=== PATIENT | female | born 1950 | race Caucasian/White ===

== ENCOUNTER 2016-10-23 15:25 | Inpatient (IN) ==
[2016-10-23] MEDS ORDERED: ASPIRIN PO STA (16:17)
[2016-10-23] MEDS ORDERED: NS 1,000 ML IV ONE ×2 (17:09→20:57)
[2016-10-23 17:13] LABS: BASO% 0.2 % (0.0-0.8); HEMATOCRIT 41.8 % (37.0-47.0); HEMOGLOBIN 14.5 g/dL (12.0-16.0); IMM GRAN# 0.05 X1000 (0.0-0.04); IMM GRAN% 0.3 % (0.0-0.5); LYMPH# 0.79 X1000 (1.2-3.4); LYMPH% 5.4 % (20.5-51.1); MANUAL DIFF NEEDED? NO; MCH 31.7 PG (27-31); MCHC 34.7 g/dL (33-37); MCV 91.5 FL (81-99); MONO# 0.68 X1000 (0.11-0.59); MONO% 4.7 % (1.7-9.3); MPV 10.8 FL (7.4-10.4); NEUT% 89.4 % (42.2-75.2); PLT 212 X1000 (130-400); RBC 4.57 XMIL (4.2-5.4)
[2016-10-23 17:22] LABS: INR 0.94; PROTIME 9.8 Seconds (9.2-11.7); PTT 21.8 Seconds (22.0-36.0)
--- NOTE | 2016-10-23 17:42 | Diag Imaging Result Doc PS360 ---
EXAM: CHEST-PORTABLE HISTORY: vomiting, h/o DM TECHNIQUE: COMPARISON: 01/21/2016 FINDINGS: The lungs are hyperexpanded. The heart is not enlarged. No consolidation. No pleural effusions identified. Mild scoliosis. IMPRESSION: Negative exam Electronically signed by Jamir Ken 10/23/2016 5:40 PM
[2016-10-23 18:37] LABS: ALBUMIN 4.3 g/dL (3.5-5.0); CALCIUM 9.7 mg/dL (8.8-10.2); POTASSIUM 4.7 mmol/L (3.5-5.1); TOTAL BILIRUBIN 0.72 mg/dL (0.20-1.00); TOTAL PROTEIN 7.9 g/dL (6.3-8.3)
[2016-10-23] MEDS ORDERED: HUMULIN R IV ONE (18:44)
[2016-10-23] MEDS ORDERED: ZOFRAN IV ONE (18:45)
[2016-10-23] MEDS ORDERED: HUMULIN R 100 UNIT in NS 100 ML IV SCH ×2 (18:45→19:05)
--- NOTE | 2016-10-23 18:48 | PROVIDER DOCUMENTATION ---
This chart was entered by Skylar Stapleton Scribe, acting as scribe for Ruy Loya MD. HPI-General Adult - General Source: patient - History of Present Illness -Gen Adult Nature of Presenting Problems: Pt is a 66 year old female who came to the ED with a cc of high blood sugar and N/V. Pt reports the last time she took her insulin was last night, but this morning she started vomiting. Pt reports her blood sugar was high and cannot keep anything down. Pt reports, "This feels like DKA." Location of Pain/Injury: reports: none Pain Radiation: reports: no radiation Quality of Pain: reports: none Severity: reports: mild Onset/Duration: reports: this morning Timing: reports: still present Context/Activities at Onset: reports: none Modifying Factors: improves with: nothing Associated Symptoms: reports: nausea, vomiting Similar Symptoms Previously?: Yes Recently seen or treated by another doctor?: No - Diabetes Related Context Context: reports: high blood sugar, prior DKA hospitalization <Ruy Loya - Last Filed: 10/23/16 18:46> - General Source: patient <Hair RiveraCompa - Last Filed: 10/23/16 19:29> - General Chief Complaint: High Blood Sugar Stated Complaint: VOMITING, HIGH BS Time Seen by Provider: 10/23/16 15:56 Allergies/Adverse Reactions: Patient Allergies Allergy/AdvReac Type Severity Reaction Status Date / Time No Known Allergies Allergy Verified 10/13/15 10:40 Home Medications: Home Medication List Medication Instructions Recorded Confirmed Last Taken Type ATORVAstatin [Lipitor] 20 mg PO DAILY 01/21/16 10/23/16 10/22/16 20:00 History Hydrocodone/Acetaminophen [[place] 1 each PO Q6H PRN PRN #12 tablet 01/21/1610/2302/20/16 19:00 Rx 5-325 Tablet] Metoprolol [Lopressor] 25 mg PO BID 01/21/16 10/23/16 10/22/16 20:00 History Pregabalin [Lyrica] 150 mg PO BID 01/21/16 10/23/16 10/22/16 20:00 History Venlafaxine [Effexor] 75 mg PO DAILY 01/21/16 10/23/16 10/22/16 08:00 History Insulin Aspart [Novolog] 7 unit SQ DIRECTED 02/21/16 10/23/16 10/22/16 20:00 History Insulin Glargine [Lantus] 32 unit .SEE ORDER DIRECTED 02/21/16 10/23/1610/22 07:00 History Metoclopramide HCl 5 mg PO AC PRN 10/23/16 10/23/16 10/23/16 10:00 History Review of Systems - Adult - REVIEW OF SYSTEMS - ADULT Constitutional: denies: chills, fever Eyes: reports: no symptoms reported Ears, Nose, Mouth & Throat: reports: no symptoms reported Cardiovascular: reports: no symptoms reported Respiratory: reports: no symptoms reported Gastrointestinal: reports: diarrhea, nausea, vomiting. denies: constipation, difficulty swallowing, frequent heartburn Genitourinary: reports: no symptoms reported Musculoskeletal: reports: no symptoms reported Integumentary: reports: no symptoms reported Neurological: reports: no symptoms reported Psychiatric: reports: no symptoms reported Endocrine: denies: heat intolerance, increased thirst Hematologic/Lymphatic: reports: no symptoms reported Allergic/Immunologic: reports: no symptoms reported All Other Systems: Reviewed and Negative <Ruy Loya - Last Filed: 10/23/16 18:46> - REVIEW OF SYSTEMS - ADULT Constitutional: denies: chills, fever <Hair Rivera - Last Filed: 10/23/16 19:29> Past History - Adult - PAST MEDICAL HISTORY-ADULT Review of Records: reports: Nursing Assessment Review Major Childhood Illnesses: reports: denies history Cardiovascular: reports: HTN, hyperlipidemia Respiratory: reports: denies history Gastrointestinal: reports: denies history Obstetrical/Gynecological: reports: denies history Genitourinary: reports: denies history Musculoskeletal: reports: denies history Neurological: reports: denies history Psychiatric: reports: depression Endocrine/Immune: reports: Diabetes, thyroid disorder (hyperthyroid) Other Conditions: reports: denies history - PRIOR SURGERIES/PROCEDURES Surgical/Procedure History: reports: hysterectomy, other (right ovary removed) - PRIOR HOSPITALIZATIONS Prior Hospitalizations: reports: for similar symptoms - IMMUNIZATION STATUS Childhood Immunizations: See Nurse Assessment Flu Vaccine: See Nurse Assessment - FAMILY HISTORY Family History: reviewed, not pertinent <Ruy Loya - Last Filed: 10/23/16 18:46> - PAST MEDICAL HISTORY-ADULT Review of Records: reports: Old Records Reviewed, Nursing Assessment Review, Medications Reviewed, Social history reviewed & non-contributory. <Hair Rivera - Last Filed: 10/23/16 19:29> Physical Exam-General - PHYSICAL EXAM-ADULT Initial Vital Signs Reviewed: Yes - CONSTITUTIONAL General Appearance: alert, mild distress - EYES Eyes: PERRL/EOMI, pink conjunctivae - HEAD, EARS, NOSE, MOUTH & THROAT HENMT: normocephalic/atraumatic, moist mucous membranes - NECK Neck: non-tender, full range of motion - RESPIRATORY Respiratory: chest non-tender, lungs clear - CARDIOVASCULAR Cardiovascular: normal peripheral pulses, regular rate, rhythm - GASTROINTESTINAL (ABDOMEN) Abdominal Exam: normal bowel sounds, soft - MUSCULOSKELETAL Back Exam: normal inspection, no CVA tenderness Extremity: normal range of motion, non-tender - SKIN Integumentary: warm/dry - NEUROLOGIC Neurologic: grossly normal - PSYCHIATRIC Psych/Mental Status: normal mood/affect, normal thought content, normal thought process, oriented x 3 <Ruy Loya - Last Filed: 10/23/16 18:46> - PHYSICAL EXAM-ADULT Initial Vital Signs Reviewed: Yes - CONSTITUTIONAL General Appearance: alert <Hair Rivera - Last Filed: 10/23/16 19:29> Progress - PLAN OF CARE/RESULTS Progress/Plan/Lab Results: Vital Signs - 8 hr 10/23/16 15:47 Pulse Rate 96 H Respiratory Rate 18 Blood Pressure 100/48 O2 Sat by Pulse Oximetry 98 Result Diagrams: 10/23/16 16:40 10/23/16 17:54 - CHANGE OF SHIFT REPORT (ED Provider) Report Given and Care Transferred to:: Dr. Rivera Time of Transfer: 18:20 Items Pending: Labs (CMP), Other (response to IV fluids) <Ruy Loya - Last Filed: 10/23/16 18:46> - PLAN OF CARE/RESULTS Progress/Plan/Lab Results: Vital Signs - 8 hr 10/23/16 15:47 10/23/16 16:52 10/23/16 17:45 Pulse Rate 96 H 101 H 118 H Respiratory Rate 18 18 16 Blood Pressure 100/48 152/68 135/60 O2 Sat by Pulse Oximetry 98 100 98 10/23/16 18:19 Pulse Rate 115 H Respiratory Rate 22 Blood Pressure 151/70 O2 Sat by Pulse Oximetry 100 Laboratory Results - last 24 hr 10/23/16 10/23/16 10/23/16 16:40 16:40 16:40 WBC 14.51 H RBC 4.57 Hgb 14.5 Hct 41.8 MCV 91.5 MCH 31.7 H MCHC 34.7 RDW Std Deviation 12.2 Plt Count 212 MPV 10.8 H Immature Gran % (Auto) 0.3 Neut % (Auto) 89.4 H Lymph % (Auto) 5.4 L [place] % (Auto) 4.7 Eos % (Auto) 0.0 Baso % (Auto) 0.2 Immature Gran # (Auto) 0.05 H Neut # (Auto) 12.96 H Lymph # (Auto) 0.79 L [place] # (Auto) 0.68 H Eos # (Auto) 0.00 Baso # (Auto) 0.03 PT 9.8 INR 0.94 PTT (Actin FS) 21.8 L D-Dimer 1.81 H Specimen Type Sample Site pH pCO2 pO2 HCO3 Base Excess Oxyhemoglobin ABG O2 Sat (Calculated) ABG O2 Saturation ABG Carboxyhemoglobin ABG Methemoglobin Nestor Test A-a O2 Difference Total Hemoglobin Lactate Blood Gas Modality FiO2 % Sodium Potassium Chloride Carbon Dioxide Anion Gap BUN Creatinine Estimated GFR/1.73 m2 BUN/Creatinine Ratio Glucose Calculated Osmolality Calcium Magnesium Total Bilirubin AST ALT Alkaline Phosphatase Creatine Kinase Bdf-Z-Cvochlzepxe Pept Total Protein Albumin Globulin Albumin/Globulin Ratio 10/23/16 10/23/16 10/23/16 17:54 17:54 19:00 WBC RBC Hgb Hct MCV MCH MCHC RDW Std Deviation Plt Count MPV Immature Gran % (Auto) Neut % (Auto) Lymph % (Auto) [place] % (Auto) Eos % (Auto) Baso % (Auto) Immature Gran # (Auto) Neut # (Auto) Lymph # (Auto) [place] # (Auto) Eos # (Auto) Baso # (Auto) PT INR PTT (Actin FS) D-Dimer Specimen Type ARTERIAL Sample Site R RADIAL pH 7.18 L* pCO2 27 L pO2 87 HCO3 11.8 L Base Excess -16.7 L Oxyhemoglobin 94.9 L ABG O2 Sat (Calculated) 17.8 ABG O2 Saturation 98.1 ABG Carboxyhemoglobin 2.00 ABG Methemoglobin 1.4 Nestor Test YES A-a O2 Difference 29.0 Total Hemoglobin 13.3 Lactate 4.70 H Blood Gas Modality ROOM AIR FiO2 % 21.0 Sodium 137 Potassium 4.7 Chloride 91 L Carbon Dioxide 12 L Anion Gap 34 BUN 34 H Creatinine 1.2 H Estimated GFR/1.73 m2 45 BUN/Creatinine Ratio 28 Glucose 603 H* Calculated Osmolality 309 Calcium 9.7 Magnesium 2.0 Total Bilirubin 0.72 AST 18 ALT 20 Alkaline Phosphatase 82 Creatine Kinase 49 Nbe-P-Ukyajgricml Pept 190 Total Protein 7.9 Albumin 4.3 Globulin 3.6 Albumin/Globulin Ratio 1.2 Orders Category Date Time Status Cardiac Monitoring DIRECTED Care 10/23/16 16:18 Active Saline Loc NOW Care 10/23/16 16:18 Active CHEST-PORTABLE [RAD] Stat Exams 10/23/16 17:12 Completed ABG [RESP] Routine Lab 10/23/16 19:00 Completed CBC WITH ELECTRONIC DIFF [HEME] Stat Lab 10/23/16 16:40 Completed CK PROFILE [SP CHEM] Stat Lab 10/23/16 17:54 Completed COMPREHENSIVE METABOLIC PANEL [CHEM] Stat Lab 10/23/16 17:54 Completed D-DIMER [CHEM] Stat Lab 10/23/16 16:40 Completed MAGNESIUM [CHEM] Stat Lab 10/23/16 17:54 Completed PRO B-NATRIURETIC PEPTIDE Stat Lab 10/23/16 17:54 Completed PROTIME WITH INR [COAG] Stat Lab 10/23/16 16:40 Completed PTT [COAG] Stat Lab 10/23/16 16:40 Completed UA [UA NIMS W/REFLEX CULT] [URINALYSIS] Stat Lab 10/23/16 19:01 Uncollected UDS [URINE DRUG SCREEN] Stat Lab 10/23/16 19:02 Uncollected 0.9% Sodium Chloride Inj [Ns] 1,000 ml Med 10/23/16 17:09 Active IV 75 mls/hr 0.9% Sodium Chloride Inj [Ns] 100 ml Med 10/23/16 18:45 Discontinued Insulin Human Regular [Humulin R] 100 unit IV 5 unit/hr 0.9% Sodium Chloride Inj [Ns] 99 ml Med 10/23/16 19:06 Active Insulin Human Regular [Humulin R] 100 unit IV Per Protocol Aspirin Med 10/23/16 16:17 Discontinued 325 mg PO STAT STA Insulin Human Regular [Humulin R] Med 10/23/16 18:44 Discontinued 5 unit IV NOW ONE Ondansetron [Zofran] Med 10/23/16 18:45 Discontinued 4 mg IV NOW ONE EKG [EKG] Stat Ther 10/23/16 16:18 Ordered Result Diagrams: 10/23/16 16:40 10/23/16 17:54 <Hair Rivera - Last Filed: 10/23/16 19:29> Departure <Ruy Loya - Last Filed: 10/23/16 18:46> - Departure Time of Disposition Decision: 19:28 Certified Medical Emergency: Emergent - Critical Care Note This patient required my direct & personal management of CC.: Yes Total Time (mins): 60 Critical Care Statement: This patient required my direct personal management to treat or rule out processes, the absence of which, could potentiallly result in sudden, clinically significant life or limb threatening deterioration. <Hair Rivera - Last Filed: 10/23/16 19:29> - Departure DIAGNOSIS: DKA (diabetic ketoacidoses) Qualifiers: Diabetes mellitus type: type 1 Diabetes mellitus complication detail: without coma Qualified Code(s): E10.10 - Type 1 diabetes mellitus with ketoacidosis without coma Disposition: ADMITTED INPATIENT 09 Condition: Fair Referrals and Follow-Ups: Saleem Rico MD [Primary Care Provider] - This chart was documented by the indicated scribe, (Skylar Stapleton Scribe) and accurately reflects the services I performed and decisions made by me, Ruy Loya MD, as attested by the provider's signature.
[2016-10-23 19:15] LABS: ALLEN TEST YES; BE -16.7 mmoll (-3.0-3.0); BLOOD TYPE ARTERIAL; DRAW SITE R RADIAL; METHB 1.4 % (0.0-1.5); O2(CT) 17.8 mL/dL (15.0-23.0); PCO2(98.6) 27 mmHg (35-45); PO2(98.6) 87 mmHg (60-100); SAMPLE BLOOD; SAO2 98.1 % (95.0-100.0); THB 13.3 g/dL (11.5-17.4)
[2016-10-23 19:16] LABS: MODALITY ROOM AIR; pH(98.6) 7.18 (7.35-7.45)
[2016-10-23 20:41] LABS: URINE CULTURE NEEDED? NO; URINE MICRO REVIEW NEEDED? NO; URINE SOURCE CLEAN CATCH
[2016-10-23 20:46] LABS: BILIRUBIN URINE NEGATIVE (NEGATIVE); BLOOD URINE NEGATIVE (NEGATIVE); COLOR STRAW; GLUCOSE URINE >1000 mg/dL (NEGATIVE); LEUKOCYTES URINE NEGATIVE (NEGATIVE); NITRITE URINE NEGATIVE (NEGATIVE); PH URINE 5.5; PROTEIN URINE NEGATIVE (NEGATIVE); SP GRAVITY URINE 1.021; TURBIDITY URINE CLEAR (CLEAR); UROBILINOGEN URINE NORMAL (NORMAL)
[2016-10-23 20:48] LABS: UR EPITHELIAL CELLS <10 /HPF (<10); URINE BACTERIA NEGATIVE /HPF; URINE RBC <10 /HPF (<10); URINE WBC <10 /HPF (<10)
[2016-10-23 20:58] LABS: UR AMPHETAMINES QUAL NONE DETECTED (NONE DETECT); UR BARBITUATES QUAL NONE DETECTED (NONE DETECT); UR BENZODIAZEPIN QUAL NONE DETECTED (NONE DETECT); UR CANNABINOIDS QUAL NONE DETECTED (NONE DETECT); UR COCAINE QUAL NONE DETECTED (NONE DETECT); UR METHADONE QUAL NONE DETECTED (NONE DETECT); UR OPIATES QUAL NONE DETECTED (NONE DETECT); UR OXYCODONE QUAL NONE DETECTED (NONE DETECT); UR PCP QUAL NONE DETECTED (NONE DETECT)
[2016-10-23] MEDS ORDERED: ZOFRAN IV PRN ×2 (21:22→21:51)
[2016-10-23] MEDS ORDERED: REGLAN PO PRN (21:22)
[2016-10-23] MEDS ORDERED: NORCO-5 PO PRN (21:22)
[2016-10-23] MEDS: HUMULIN R 100 UNIT in NS 99 ML IV SCH (21:24)
[2016-10-23] MEDS ORDERED: D50W SYRINGE IV PRN (21:51)
[2016-10-23] MEDS ORDERED: SODIUM PHOSPHATE 30 MMOL in D5W 250 ML IV PRN (21:51)
[2016-10-23] MEDS ORDERED: MAGNESIUM SULFATE 2 GM/S.W.I. 2 GM/50 ML IVPB IV PRN (21:51)
[2016-10-23] MEDS ORDERED: POTASSIUM CHLORIDE 40 MEQ in NS 250 ML IV PRN (21:51)
[2016-10-23] MEDS ORDERED: TYLENOL PR PRN (21:51)
[2016-10-23 21:52] LABS: HDL 70 mg/dL (45-65); LDL 78 mg/dL; TRIGLYCERIDES 143 mg/dL (35-135); VLDL 29 mg/dL
[2016-10-23 21:52] LABS: HEMOGLOBIN A1C 10.8 % (4.8-6.0)
--- NOTE | 2016-10-23 21:59 | HISTORY AND PHYSICAL ---
PRIMARY CARE PROVIDER: Saleem Rico MD CHIEF COMPLAINT: Nausea and vomiting. HISTORY OF PRESENT ILLNESS: This is a 66-year-old female, who presented to the emergency room today with her brother after eating some grilled foods last night at around 8 p.m. She reportedly started having nausea and vomiting early this morning around 3 a.m. she does have a past medical history of diabetes mellitus type 2, which is now insulin dependent with frequent admissions for hyperglycemia and DKA. The patient is also known to be noncompliant with her medications. Admitting to the nurses in the emergency room that she does not take her medications regularly, including her Reglan for nausea and vomiting. On my interview, she stated that she is compliant with all of her medications and she does not know what happened. She was not around anybody with nausea and vomiting. So the ER went ahead with a laboratory data examination which showed the patient to be acidotic with an elevated glucose of 603 and ketone bodies in her urine. She also had a BUN of 34 and a creatinine of 1.2 respectively. The patient be admitted to ICU for further evaluation and treatment of DKA. PAST MEDICAL HISTORY: Hypertension, hyperlipidemia, diabetes mellitus type 2, now insulin- dependent, diabetic neuropathy, diabetic gastroparesis. SURGICAL HISTORY: Patient appears not to have had any surgeries in the past. SOCIAL HISTORY: Patient is single. Lives alone. Brother was originally at bedside, but during my interview the patient was alone in the emergency room. She denies tobacco, alcohol or illicit drug use or abuse. FAMILY HISTORY: Reviewed with the patient. She states that her parents have no longstanding health issues. Her brother is fully healthy with no health issues as well. ALLERGIES: No known drug allergies. HOME MEDICATIONS: 1. Lyrica 150 mg p.o. b.i.d. 2. Lipitor 20 mg p.o. daily. 3. Effexor 75 mg p.o. daily. 4. Lopressor 25 mg p.o. b.i.d. 5. Fitzpatrick 1 p.o. q.6 p.r.n. 6. NovoLog 7 units sliding scale. 7. Lantus 32 units as ordered. 8. Reglan 5 mg p.o. a.c. p.r.n. REVIEW OF SYSTEMS: Fourteen point review of systems conducted with the patient. Pertinent positives are listed above in the HPI. All other systems were reviewed and found to be negative. PHYSICAL EXAMINATION: VITAL SIGNS: Pulse 136, respirations 18, blood pressure 128/82, oxygen saturation 100% on room air. GENERAL: This is a 66-year-old female who appears to be unkempt in the emergency room. She became agitated with the nursing staff and would not fully answer questions. On my examination, she likewise did not have a lot of information she was willing to share. She appears to be alert and oriented appropriately. HEENT: Head is atraumatic, normocephalic. Pupils equal, round, react reactive to light. Extraocular eye movement intact. Sclerae is anicteric. Conjunctivae is pink. Oral mucosa is dry. NECK: Supple. No JVD. No thyromegaly. Trachea is midline. No cervical lymphadenopathy. CARDIAC: Regular rhythm. Sinus tachycardia on monitor. S1-S2 appreciated. No murmurs, gallops, rubs. LUNGS: Clear to auscultation bilaterally. No rhonchi, wheezes or rales. Symmetrical rise and fall with respirations. ABDOMEN: Soft, nondistended, nontender. Bowel sounds present in all 4 quadrants. Normoactive. No pulsatile mass. No organomegaly. EXTREMITIES: No clubbing, cyanosis, mild edema, nonpitting bilateral lower extremities. 2+ pedal pulses. NEUROLOGICAL: Alert and oriented x3. Patient does appear somewhat agitated. She is not totally compliant in answering questions, but does answer all questions appropriately. Cranial nerves 2- 12 appear to be grossly intact. No motor or focal deficits noted. GENITOURINARY: Incontinent of urine today, but that was subjective. No bladder distention noted. Otherwise, nonfocal examination. DIAGNOSTIC DATA: Chest x-ray: Mild scoliosis. Otherwise negative examination. No acute disease. LABORATORY DATA: WBC 14.51, hemoglobin 14.5, hematocrit 41.8, platelet count is 212,000. D-dimer elevated at 1.81, coagulase within normal limits. ABG: PH on room air was 7.18 , pCO2 27, PO2 87, bicarb 11.8. Sodium 137, potassium 4.7, chloride 91, carbon dioxide 12, anion gap is 34. BUN 34, creatinine 1.2, glucose 603, magnesium 2, calcium 9.7. Phosphorus is pending. Urine greater than 1000 glucose. 100 ketone bodies were noted. Otherwise, unremarkable. Urine drug screen is pending. ASSESSMENT AND PLAN: 1. Diabetic ketoacidosis. Patient appears to be noncompliant. However, she states that she does take all medications regularly. I will check a hemoglobin A1c. Start patient on normal saline bolusing x2 L. I believe she has already received a liter in the emergency room. Then we will continue normal saline per diabetic ketoacidosis protocol. We will change advisor to D5 half-normal saline when patient approaches 200 to fully close her anion gap. 2. Fluid volume depletion secondary to nausea and vomiting. We will give Zofran as needed for nausea and vomiting. Hold patient nothing per oral except for medications at this time. As noted above, normal saline will be administered for fluid volume repletion. 3. Acute kidney injury secondary to 1 and 2. The patient has a baseline creatinine of around 0.8 and a normal glomerular filtration rate. We expect a full recovery of her renal function after fluid volume repletion. 4. Diabetic gastroparesis. As noted above, patient originally told the nursing staff that she is not consistent with her Reglan. We will continue it in the hospital. We will also add Zofran for nausea and vomiting. 5. Hyperlipidemia. Patient is already on a statin. We will check a lipid profile, but we will continue her statin. 6. Questionable depression. The patient is on Effexor. We will continue this, although she did not note a history of depression. The patient will be placed on Lovenox for deep venous thrombosis prophylaxis as she will be on bed rest with strict input and output in the intensive care unit overnight. We will give Protonix for gastrointestinal prophylaxis. As noted above, her primary care doctor is Dr. Rico who will follow up with the patient in the morning. Further recommendations per patient clinical course. Dictated by DENVER Ingram for Brayan Witt MD cc: DENVER Ingram MD Bharat K. Vakharia, MD MTDD
[2016-10-23] MEDS: NS 1,000 ML IV SCH ×3 (22:01→22:02)
[2016-10-23 22:44] LABS: URINE CULTURE NEEDED? NO; URINE MICRO REVIEW NEEDED? NO; URINE SOURCE CATH
[2016-10-23] MEDS: SODIUM CHLORIDE 0.9% INJ SCH (22:46)
[2016-10-23] MEDS: LOVENOX SUBQ SCH (22:46)
[2016-10-23] MEDS: LOPRESSOR PO SCH (22:46)
[2016-10-23] MEDS: LYRICA PO SCH (22:46)
[2016-10-23] MEDS: PROTONIX IV SCH (22:46)
[2016-10-23 23:00] LABS: UR EPITHELIAL CELLS <10 /HPF (<10); URINE BACTERIA NEGATIVE /HPF; URINE RBC <10 /HPF (<10); URINE WBC <10 /HPF (<10)
[2016-10-23 23:24] LABS: BILIRUBIN URINE NEGATIVE (NEGATIVE); BLOOD URINE TRACE (NEGATIVE); COLOR YELLOW; GLUCOSE URINE >1000 mg/dL (NEGATIVE); LEUKOCYTES URINE NEGATIVE (NEGATIVE); NITRITE URINE NEGATIVE (NEGATIVE); PROTEIN URINE TRACE mg/dL (NEGATIVE); SP GRAVITY URINE 1.019; TURBIDITY URINE CLEAR (CLEAR); UROBILINOGEN URINE NORMAL (NORMAL)
[2016-10-23 23:46] LABS: MAGNESIUM 1.8 mg/dL (1.5-2.7)
[2016-10-23 23:51] LABS: AMYLASE 51 U/L (20-200); LIPASE 18 U/L (13-60)
[2016-10-23 23:52] LABS: CALCIUM 8.2 mg/dL (8.8-10.2)
[2016-10-24] MEDS: POTASSIUM CHLORIDE 20 MEQ in NS 100 ML IV PRN ×2 (00:09→06:19)
[2016-10-24 04:11] LABS: ALLEN TEST YES; BE -5.4 mmoll (-3.0-3.0); BLOOD TYPE ARTERIAL; DRAW SITE R RADIAL; METHB 1.2 % (0.0-1.5); O2(CT) 16.7 mL/dL (15.0-23.0); PCO2(98.6) 38 mmHg (35-45); PO2(98.6) 83 mmHg (60-100); SAMPLE BLOOD; SAO2 98.4 % (95.0-100.0); THB 12.4 g/dL (11.5-17.4); pH(98.6) 7.33 (7.35-7.45)
[2016-10-24 04:12] LABS: MODALITY ROOM AIR
[2016-10-24] MEDS: D5 NS 1,000 ML IV PRN ×2 (04:15→13:33)
[2016-10-24 04:37] LABS: MANUAL DIFF NEEDED? NO
[2016-10-24 04:54] LABS: BASO% 0.1 % (0.0-0.8); HEMATOCRIT 32.1 % (37.0-47.0); IMM GRAN# 0.04 X1000 (0.0-0.04); IMM GRAN% 0.3 % (0.0-0.5); LYMPH# 1.61 X1000 (1.2-3.4); LYMPH% 12.1 % (20.5-51.1); MCH 31.6 PG (27-31); MCHC 34.3 g/dL (33-37); MCV 92.2 FL (81-99); MONO# 1.11 X1000 (0.11-0.59); MONO% 8.3 % (1.7-9.3); MPV 10.4 FL (7.4-10.4); NEUT% 79.2 % (42.2-75.2); PLT 211 X1000 (130-400); RBC 3.48 XMIL (4.2-5.4)
[2016-10-24] MEDS: NS 1,000 ML IV SCH ×3 (05:15→15:45)
--- NOTE | 2016-10-24 05:30 | EKG Report ---
Test Performed on : 10/23/2016 5:27:13 PM Test Reason : Chest Pain Blood Pressure : / mmHG Vent. Rate : 107 BPM Atrial Rate : 107 BPM P-R Int : 150 ms QRS Dur : 070 ms QT Int : 364 ms P-R-T Axes : 084 044 076 degrees QTc Int : 485 ms Sinus tachycardia. Right atrial enlargement Nonspecific ST abnormality Abnormal ECG When compared with ECG of 13-OCT-2015 09:32, No significant change was found Unconfirmed Result
[2016-10-24] MEDS ORDERED: NS 1,000 ML IV ONE ×2 (05:31→06:30)
[2016-10-24 05:52] LABS: CALCIUM 8.3 mg/dL (8.8-10.2); MAGNESIUM 1.8 mg/dL (1.5-2.7); POTASSIUM 4.1 mmol/L (3.5-5.1)
[2016-10-24] MEDS: HUMULIN R 100 UNIT in NS 99 ML IV SCH (06:37)
--- NOTE | 2016-10-24 07:24 | PROGRESS NOTE ---
DATE: 10/24/2016 SUBJECTIVE: Ms. Cardona, a 66-year-old, white female patient with known case of insulin dependent diabetes mellitus, admitted with abdominal pain, nausea, vomiting. Found to have diabetic ketoacidosis. The patient is on insulin drip. She is hydrated. Her blood pressure was low. No nausea or vomiting since admission. The patient received 5 L of fluid. We are following DKA protocol. When I talked to the patient, she was alert and awake. She denied any chest pain. No headache. No unusual cough or expectoration. OBJECTIVE: Vital Signs noted. T-max 99.8 degrees. Neck supple. No JVD. Lungs: Bilateral good air entry present. Few basal crepitations. CVS: S1 and S2 heard; at times, tachycardia. Abdomen soft, globular. Bowel sounds present. Extremities: No cyanosis, clubbing or acute DVT. TARIFF COMPILING CLERK: Alert, awake, able to move all 4 limbs. Her chest x-ray was negative. Blood work done this morning revealed WBC count 13.31, hemoglobin 11, hematocrit 32.1, platelet count 211,000. PT/INR at 0.94. PTT was 21.8. Her blood gas pH 7.33, pCO2 38, PO2 of 83. This was done on room air. Her pH seems to be improving. Blood sugar also improving. Magnesium was 1.8, phosphorus 1.6, anion gap this morning was 13; on admission, anion gap was 34, and blood sugar was 603. Her hemoglobin A1c was 10.8. Urinalysis did reveal glycosuria. Urine drug screen results reviewed. CONSIDERATION: 1. Diabetic ketoacidosis. 2. Diabetes mellitus complicated by peripheral neuropathy. 3. Gastritis. 4. Hypertension. 5. Hyperlipidemia. 6. Situational depression. PLAN: We will follow DKA protocol. Close observation. Monitor for hypoglycemia. Continue rest of the treatment and close observation. Overall plan discussed with the patient, and she is in agreement. cc: Saleem Rico MD
[2016-10-24] MEDS: LOPRESSOR PO SCH ×2 (08:28→21:27)
[2016-10-24] MEDS: LYRICA PO SCH ×2 (08:28→20:42)
[2016-10-24] MEDS: EFFEXOR PO SCH (08:28)
[2016-10-24] MEDS: LIPITOR PO SCH (08:28)
[2016-10-24 09:52] LABS: CALCIUM 7.2 mg/dL (8.8-10.2); MAGNESIUM 1.7 mg/dL (1.5-2.7); POTASSIUM 4.7 mmol/L (3.5-5.1)
[2016-10-24] MEDS ORDERED: LANTUS SUBQ ONE (10:29)
[2016-10-24] MEDS ORDERED: INSULIN PEN NEEDLES ONE (11:15)
[2016-10-24] MEDS: HUMALOG SUBQ SCH ×4 (12:24→20:43)
[2016-10-24 19:48] LABS: AGAP 11; BUN 23 mg/dL (8-22); CALCIUM 7.4 mg/dL (8.8-10.2); CHLORIDE 113 mmol/L (98-107); COSMO 294; POTASSIUM 3.7 mmol/L (3.5-5.1); SODIUM 143 mmol/L (136-145); TCO2 19 mmol/L (25-35)
[2016-10-24] MEDS ORDERED: POTASSIUM PHOSPHATE IV ONE (20:15)
[2016-10-24] MEDS ORDERED: NS IV ONE (20:15)
[2016-10-24] MEDS: SODIUM CHLORIDE 0.9% INJ SCH (20:42)
[2016-10-24] MEDS: LOVENOX SUBQ SCH (20:42)
[2016-10-24] MEDS: PROTONIX IV SCH (20:43)
[2016-10-25] MEDS: NS 1,000 ML IV SCH (02:27)
[2016-10-25 04:48] LABS: MANUAL DIFF NEEDED? NO
[2016-10-25 05:02] LABS: BASO% 0.2 % (0.0-0.8); EOS# 0.04 X1000 (0.0-0.7); EOS% 0.3 % (0.0-10.0); HEMATOCRIT 33.9 % (37.0-47.0); HEMOGLOBIN 11.1 g/dL (12.0-16.0); IMM GRAN# 0.04 X1000 (0.0-0.04); IMM GRAN% 0.3 % (0.0-0.5); LYMPH# 4.64 X1000 (1.2-3.4); LYMPH% 29.2 % (20.5-51.1); MCH 31.4 PG (27-31); MCHC 32.7 g/dL (33-37); MCV 95.8 FL (81-99); MONO# 0.59 X1000 (0.11-0.59); MONO% 3.7 % (1.7-9.3); NEUT% 66.3 % (42.2-75.2); PLT 160 X1000 (130-400); RBC 3.54 XMIL (4.2-5.4)
[2016-10-25 05:38] LABS: AGAP 18; ALBUMIN 2.6 g/dL (3.5-5.0); ALKALINE PHOSPHATASE 58 U/L (32-104); BUN 15 mg/dL (8-22); CALCIUM 7.7 mg/dL (8.8-10.2); CHLORIDE 112 mmol/L (98-107); COSMO 283; GOT 28 U/L (10-30); GPT 14 U/L (10-36); POTASSIUM 4.3 mmol/L (3.5-5.1); SODIUM 143 mmol/L (136-145); TCO2 13 mmol/L (25-35); TOTAL BILIRUBIN 0.34 mg/dL (0.20-1.00); TOTAL PROTEIN 4.8 g/dL (6.3-8.3)
[2016-10-25] MEDS: HUMALOG SUBQ SCH ×4 (06:22→21:17)
--- NOTE | 2016-10-25 07:39 | Diag Imaging Result Doc PS360 ---
EXAM: CHEST-PORTABLE HISTORY: fever TECHNIQUE: Upright AP COMPARISON: 10/23/2016 FINDINGS: The lungs are hyperexpanded. The heart is not enlarged. The pulmonary vessels are small. No consolidation. Questionable tiny left pleural effusion. IMPRESSION: No pneumonia Electronically signed by Jamir Ken 10/25/2016 7:37 AM
[2016-10-25] MEDS: ROCEPHIN 1 GM/NS 1 GM/50 ML IVPB IV SCH (07:48)
[2016-10-25] MEDS: NEUTRA-PHOS PO SCH ×4 (08:28→21:17)
[2016-10-25] MEDS: EFFEXOR PO SCH (08:28)
[2016-10-25] MEDS: LIPITOR PO SCH (08:28)
[2016-10-25] MEDS: LYRICA PO SCH ×2 (08:29→21:17)
[2016-10-25] MEDS: LOPRESSOR PO SCH ×2 (08:29→21:17)
[2016-10-25] MEDS ORDERED: LANTUS SUBQ SCH (09:00)
--- NOTE | 2016-10-25 18:17 | PROGRESS NOTE ---
DATE: 10/25/2016 SUBJECTIVE: Ms. Cardona is feeling better. Patient is tolerating food well. She denied any fever or chills. Mild cough. No expectoration. OBJECTIVE: Vital Signs: Reviewed. Neck: Supple. No JVD. Lungs: Bilateral good air entry present. No rales. Cardiovascular: S1 and S2 heard. Abdomen: Soft, globular. Bowel sounds present. CHOCOLATE TEMPERER: Alert, awake. Able to move all 4 limbs. DIAGNOSTIC DATA: Her chest x-ray results reviewed. Lab data done this morning noted. ASSESSMENT AND PLAN: I empirically started patient on antibiotics. I am going to check appropriate lab, continue current treatment, close observation. I am going to advance her insulin. If clinical condition permits, we will plan discharging patient home tomorrow. cc: Saleem Rico MD
[2016-10-25] MEDS: PROTONIX IV SCH (21:17)
[2016-10-25] MEDS: SODIUM CHLORIDE 0.9% INJ SCH (21:17)
[2016-10-25] MEDS: LOVENOX SUBQ SCH (21:17)
[2016-10-26 05:04] LABS: ALLEN TEST YES; BE 5.3 mmoll (-3.0-3.0); BLOOD TYPE ARTERIAL; DRAW SITE R RADIAL; O2(CT) 15.3 mL/dL (15.0-23.0); PCO2(98.6) 43 mmHg (35-45); PO2(98.6) 65 mmHg (60-100); SAMPLE BLOOD; SAO2 96.4 % (95.0-100.0); THB 11.6 g/dL (11.5-17.4); pH(98.6) 7.45 (7.35-7.45)
[2016-10-26 05:05] LABS: MODALITY ROOM AIR
[2016-10-26] MEDS: HUMALOG SUBQ SCH ×3 (06:15→16:10)
[2016-10-26 06:23] LABS: MANUAL DIFF NEEDED? NO
[2016-10-26 06:43] LABS: BASO% 0.3 % (0.0-0.8); EOS# 0.06 X1000 (0.0-0.7); EOS% 0.9 % (0.0-10.0); HEMATOCRIT 35.9 % (37.0-47.0); HEMOGLOBIN 12.2 g/dL (12.0-16.0); LYMPH# 2.55 X1000 (1.2-3.4); LYMPH% 38.8 % (20.5-51.1); MCH 31.4 PG (27-31); MCV 92.5 FL (81-99); MONO# 0.36 X1000 (0.11-0.59); MONO% 5.5 % (1.7-9.3); MPV 10.1 FL (7.4-10.4); NEUT% 54.5 % (42.2-75.2); PLT 166 X1000 (130-400); RBC 3.88 XMIL (4.2-5.4)
--- NOTE | 2016-10-26 06:54 | PROGRESS NOTE ---
DATE: 10/26/2016 SUBJECTIVE: Ms. Goodrich is doing better. She is tolerating food well. No nausea or vomiting. No chest pain or palpitations. Blood pressure is improving. She denied any fever or chills. OBJECTIVE: Her vital signs noted. Neck is supple. No JVD.Lungs: Bilateral good air entry present. CVS: S1 and S2 heard. Abdomen: Soft and globular. Bowel sounds present. Extremities: No cyanosis or clubbing. No acute DVT. REGIONAL ACCOUNT DIRECTOR: Alert, awake and able to move all 4 limbs. LABORATORY DATA: As noted. Her blood gas pH 7.45, pCO2 43, PO2 was 65. This was done on room air. Electrolytes were fairly benign. The rest of the lab data are pending. Her chest x-ray done yesterday was basically benign. Questionable small left pleural effusion. Her phosphorous level was low. I did supplement it. I am going to check it again today. CONSIDERATION: Diabetic ketoacidosis clinically improving. I did increase her Lantus insulin. Her other problems includes hyperlipidemia, peripheral neuropathy, situational depression, gastritis and possible gastroparesis. cc: Saleem Rico MD
[2016-10-26 07:04] LABS: AGAP 13; ALBUMIN 3.4 g/dL (3.5-5.0); ALKALINE PHOSPHATASE 62 U/L (32-104); BUN 12 mg/dL (8-22); CALCIUM 8.6 mg/dL (8.8-10.2); CHLORIDE 104 mmol/L (98-107); COSMO 290; GOT 22 U/L (10-30); GPT 16 U/L (10-36); MAGNESIUM 1.8 mg/dL (1.5-2.7); POTASSIUM 3.7 mmol/L (3.5-5.1); SODIUM 145 mmol/L (136-145); TCO2 28 mmol/L (25-35); TOTAL BILIRUBIN 0.45 mg/dL (0.20-1.00); TOTAL PROTEIN 5.4 g/dL (6.3-8.3)
[2016-10-26] MEDS ORDERED: INSULIN PEN NEEDLES ONE (07:09)
[2016-10-26] MEDS ORDERED: SYMBICORT 160/4.5 MICROGM INHALER INH SCH (07:30)
--- NOTE | 2016-10-26 08:36 | Diag Imaging Result Doc PS360 ---
ANGIOGRAM/PULMONARY ARTERIES - 10/26/2016 INDICATION: chest pain TECHNIQUE: Axial CT images were obtained after administering intravenous contrast. Coronal MIP images were generated. A CT dose reduction protocol was used. COMPARISON: 08/08/2011 FINDINGS: There is no pulmonary embolism. Heart and great vessels are normal. There are trace pleural effusions. No infiltrates in the lungs. The airways are clear. Upper abdominal organs are unremarkable. There are moderate degenerative changes of the spine. No acute or suspicious bony lesion. IMPRESSION: Tiny, trace pleural effusions. Otherwise unremarkable. Electronically signed by Chago Sloan 10/26/2016 8:34 AM
[2016-10-26] MEDS ORDERED: LANTUS SUBQ SCH ×2 (09:00)
[2016-10-26] MEDS: LYRICA PO SCH (09:12)
[2016-10-26] MEDS: ROCEPHIN 1 GM/NS 1 GM/50 ML IVPB IV SCH (09:18)
[2016-10-26] MEDS: EFFEXOR PO SCH (09:18)
[2016-10-26] MEDS: LOPRESSOR PO SCH (09:18)
[2016-10-26] MEDS: LIPITOR PO SCH (09:18)
[2016-10-26 13:08] VITALS: BP 139/77
--- NOTE | 2016-10-27 05:11 | DISCHARGE SUMMARY ---
ADMISSION DATE: 10/23/2016 DISCHARGE DATE: 10/26/2016 FINAL DISCHARGE DIAGNOSES: 1. Diabetic ketoacidosis. 2. Acute bronchitis. 3. Gastritis. 4. Gastroparesis. 5. Situational depression. 6. Hyperlipidemia. HISTORY OF PRESENT ILLNESS: Ms. Cardona is a 66-year-old white female patient with known case of diabetes mellitus, poorly controlled, noncompliant to diet and medication. The patient was not doing well since last night. The patient had nausea and vomiting in the regulatory coordinator around 03:00 in the morning on the day of admission, abdominal pain, and came to the emergency room. Her blood sugar was around 600. Patient has a high anion gap metabolic acidosis. She was found to have diabetic ketoacidosis. She was evaluated by ER physician and admitted for further care. HOSPITAL COURSE: Patient was treated with IV hydration, insulin drip, and symptomatic treatment. The patient initially was admitted to ICU. Subsequently, she was transferred to telemetry bed. Her clinical condition gradually improved. Nausea and vomiting improved. Her anion gap and blood sugar both improved. The patient had elevated D-dimer. I did CTA of the pulmonary artery. It was negative for pulmonary embolism. Overall, patient is doing much better. Her blood sugar at times staying high. I had a lengthy discussion with the patient about her diabetes, proper diet, offered her home health to work with her. The patient refused at times. She wants to think it over and she will let me know. Overall, patient received maximum benefit of hospitalization. I am going to discharge her home today. Discussed about hypoglycemia, hyperglycemia and proper diet. Monitor Accu-Chek. Take medicine regularly. I gave her Symbicort inhaler and Ceftin. Follow up in the office next week. I reevaluated the patient this evening. She will resume her home medicine. In case of more distress, call us back or go to the emergency room. CTA of the pulmonary artery and did reveal a small pleural effusion. No pulmonary embolism. Moderate degenerative changes of the spine. No acute or suspicious bony lesion. The chest x-ray was negative for pneumonia. LABORATORY DATA: Lab data done today revealed WBC count 6.57. Hemoglobin 12.2, hematocrit 35.9, platelet count 166,000. The patient did have blood gas 7.45, pCO2 43, PO2 was 65. This was done on room air. Electrolytes were fairly benign. Blood sugar 129. Her phosphorus was 4.3. Vitamin B12 1280. Folate 22.6. TSH 0.32. Urinalysis was benign. Urine drug screen was negative. Serum ketone was negative. Overall discharge condition satisfactory. Discharge plan and medication discussed with the patient. She understood and agreed. cc: Saleem Rico MD
== END 2016-10-26 19:10 | disposition home or self-care (01) ==
LOC: ED 15:25 → SUATTDRO 20:30 → ICU 20:30 → 3N 10-25 11:12
PROVIDERS: ADMIT Internal Medicine; ATTEND Internal Medicine

== ENCOUNTER 2019-02-17 00:23 | Inpatient (IN) ==
[2019-02-17] MEDS ORDERED: ZOFRAN IV ONE (00:54)
[2019-02-17] MEDS ORDERED: NS 1,000 ML IV ONE ×2 (00:54→00:57)
[2019-02-17 00:56] LABS: BASO# 0.01 X1000 (0.0-0.2); BASO% 0.1 % (0.0-0.8); HEMATOCRIT 37.3 % (37.0-47.0); HEMOGLOBIN 12.6 g/dL (12.0-16.0); IMM GRAN# 0.05 X1000 (0.0-0.04); IMM GRAN% 0.4 % (0.0-0.5); LYMPH% 13.7 % (20.5-51.1); MCH 30.9 PG (27-31); MCHC 33.8 g/dL (33-37); MCV 91.4 FL (81-99); MONO# 0.59 X1000 (0.11-0.59); MONO% 4.5 % (1.7-9.3); NEUT# 10.71 X1000 (1.4-6.5); NEUT% 81.3 % (42.2-75.2); PLT 252 X1000 (130-400); RBC 4.08 XMIL (4.2-5.4); RDW 12.4 % (11.5-14.5); WBC 13.16 X1000 (4.8-10.8)
[2019-02-17] MEDS ORDERED: HUMULIN R IV ONE ×2 (00:57→04:45)
[2019-02-17 01:13] LABS: ALLEN TEST YES; BE -11.2 mmoll (-3.0-3.0); BLOOD TYPE ARTERIAL; HCO3-(ACT) 16.2 mmoll (20.0-26.0); METHB 1.3 % (0.0-1.5); O2(CT) 15.6 mL/dL (15.0-23.0); O2HB 95.9 % (95.0-99.0); PCO2(98.6) 26 mmHg (35-45); PO2(98.6) 85 mmHg (60-100); SAMPLE BLOOD; THB 11.5 g/dL (11.5-17.4); pH(98.6) 7.32 (7.35-7.45)
[2019-02-17 01:14] LABS: MODALITY ROOM AIR
[2019-02-17 01:28] LABS: ALB/GLOB RATIO 1.5; ALBUMIN 4.1 g/dL (3.5-5.0); CALCIUM 9.4 mg/dL (8.8-10.2); CREATININE 1.5 mg/dL (0.5-0.9); POTASSIUM 5.2 mmol/L (3.5-5.1); TOTAL BILIRUBIN 0.44 mg/dL (0.20-1.00); TOTAL PROTEIN 6.8 g/dL (6.3-8.3)
[2019-02-17] MEDS ORDERED: ROCEPHIN 1 GM in NS 50 ML IV ONE (01:33)
--- NOTE | 2019-02-17 01:35 | PROVIDER DOCUMENTATION ---
This chart was entered by Gabriela Villalobos Scribe, acting as scribe for Arti Gaona MD. HPI-Abdominal Pain/GI Problem - General Chief Complaint: High Blood Sugar Stated Complaint: hyperglycemia Time Seen by Provider: 02/17/19 00:33 Source: patient Allergies/Adverse Reactions: Patient Allergies Allergy/AdvReac Type Severity Reaction Status Date / Time No Known Allergies Allergy Verified 03/07/18 16:02 Home Medications: Home Medication List Medication Instructions Recorded Confirmed Last Taken Type ATORVAstatin [Lipitor] 90 mg PO DAILY 01/21/16 02/17/19 10/22/16 20:00 History Metoprolol [Lopressor] 50 mg PO BID 01/21/16 02/17/19 10/22/16 20:00 History Venlafaxine [Effexor] 180 mg PO BID 01/21/16 02/17/19 10/22/16 08:00 History Pregabalin [Lyrica] 150 mg PO BID capsule 10/26/16 02/17/19 Unknown Rx Insulin Aspart [Novolog] 100 unit SQ 02/17/19 Unknown History Insulin Glargine,Hum.rec.anlog 100 unit SQ DAILY 02/17/19 02/17/19 Unknown History [Lantus Solostar] Losartan Potassium 25 mg PO DAILY 02/17/19 02/17/19 Unknown History - History of Present Illness-ABD Nature of Presenting Problems: Pt is 68/F presenting to ED w/ nausea and vx4. Pt sts that she had a colonoscopy a week ago and has been nauseated since 02/10. She sts that her ABD is tender as well in the RUQ. She has taken pepto, but it only helps temporarily. She also sts that she has not passed any gas since the colonoscopy. She endorses 2 episodes of diarrhea and vomiting daily for the past few weeks. She denies any fevers. Abdominal Pain Onset Location: reports: RUQ Pain Radiation: reports: no radiation Quality of Pain: reports: aching Severity in ED: reports: moderate Onset/Duration: reports: 1 week ago Timing: reports: still present Activities at Onset: reports: none Exposure to sick contacts?: No Modifying Factors: improves with: nothing Associated Symptoms: reports: nausea, vomiting. denies: constipation Dark Stools Present?: reports: none noticed Rectal Bleeding: reports: none Rectal Pain: reports: none Bruising or Bleeding Gums?: No Similar Symptoms Previously?: Yes Recently seen or treated by another doctor?: Yes Review of Systems - Adult - REVIEW OF SYSTEMS - ADULT Constitutional: reports: no symptoms reported. denies: chills, fever Eyes: reports: no symptoms reported Ears, Nose, Mouth & Throat: reports: no symptoms reported Cardiovascular: reports: no symptoms reported. denies: chest pain Respiratory: reports: no symptoms reported Gastrointestinal: reports: abdominal pain, nausea, vomiting Genitourinary: reports: no symptoms reported Musculoskeletal: reports: no symptoms reported Integumentary: reports: no symptoms reported Neurological: reports: no symptoms reported. denies: dizziness/vertigo, headache/migraines Psychiatric: reports: no symptoms reported Endocrine: reports: no symptoms reported Hematologic/Lymphatic: reports: no symptoms reported Allergic/Immunologic: reports: no symptoms reported All Other Systems: Reviewed and Negative Past History - Adult - PAST MEDICAL HISTORY-ADULT Review of Records: reports: Old Records Reviewed, Nursing Assessment Review, Medications Reviewed, Social history reviewed & non-contributory. Major Childhood Illnesses: reports: denies history Cardiovascular: reports: HTN, hyperlipidemia Respiratory: reports: denies history Gastrointestinal: reports: denies history Obstetrical/Gynecological: reports: denies history Genitourinary: reports: denies history Musculoskeletal: reports: denies history Neurological: reports: denies history Psychiatric: reports: depression Endocrine/Immune: reports: Diabetes, thyroid disorder (hyperthyroid) Other Conditions: reports: denies history - PRIOR SURGERIES/PROCEDURES Surgical/Procedure History: reports: hysterectomy, other (right ovary removed) - PRIOR HOSPITALIZATIONS Prior Hospitalizations: reports: for similar symptoms - IMMUNIZATION STATUS Childhood Immunizations: See Nurse Assessment Flu Vaccine: See Nurse Assessment - FAMILY HISTORY Family History: reviewed, not pertinent - SOCIAL HISTORY Smoking: denies, non-smoker Substance Use: none/never Alcohol Use Frequency: never Living Situation: family Physical Exam-General - PHYSICAL EXAM-ADULT Initial Vital Signs Reviewed: Yes - CONSTITUTIONAL General Appearance: appears well, alert, mild distress - EYES Eyes: PERRL/EOMI, pink conjunctivae - NECK Neck: non-tender, full range of motion, supple, normal inspection - RESPIRATORY Respiratory: chest non-tender, lungs clear, normal breath sounds, no respiratory distress, no accessory muscle use - CARDIOVASCULAR Cardiovascular: normal peripheral pulses, no edema, tachycardia, systolic murmur - GASTROINTESTINAL (ABDOMEN) Abdominal Exam: normal bowel sounds, soft, tenderness (RUQ). negative: distended - MUSCULOSKELETAL Back Exam: normal inspection, no vertebral tenderness Extremity: normal range of motion, non-tender, normal gait, normal inspection - SKIN Integumentary: normal color, warm/dry - NEUROLOGIC Neurologic: grossly normal - PSYCHIATRIC Psych/Mental Status: normal mood/affect, normal thought content, normal thought process, oriented x 3 Progress - PLAN OF CARE/RESULTS Progress/Plan/Lab Results: Laboratory Results - last 24 hr 02/17/19 00:34 POC Glucose 500 H D Orders Category Date Time Status FSBS [Finger Stick Blood Sugar (ED)] DIRECTED Care 02/17/19 00:20 Active AMYLASE [CHEM] Stat Lab 02/17/19 00:37 Received CBC WITH ELECTRONIC DIFF [HEME] Stat Lab 02/17/19 00:37 Results COMPREHENSIVE METABOLIC PANEL [CHEM] Stat Lab 02/17/19 00:37 Received LACTATE, PLASMA [CHEM] Stat Lab 02/17/19 00:46 Received LIPASE [CHEM] Stat Lab 02/17/19 00:37 Received UA NIMS W/REFLEX CULT [URINALYSIS] Stat Lab 02/17/19 00:46 Uncollected URINE DRUG SCREEN Stat Lab 02/17/19 00:47 Uncollected Patient with negative CT Abd/epl. WBC 13k but no signs of infection. GLucose 601. Patient with pH to 7.32 but electrolyte abnormalities. Very borderline DKA. Will place patient on drip to prevent further abnormalities. Covered with rocephin given initial vitals and leukocytosis. Spoke to Dr Witt, shipbuilding draftsperson for ospitalist who accepted patient for admission. Further orders to be placed by their team. Result Diagrams: 02/17/19 00:37 02/17/19 00:37 - CT/MRI 1 CT Study: Abdomen, Pelvis Impression: Normal - CONSULTS/PCP/HOSPITALIST Notification #1 *Consult/PCP/Hospitalist*: Dr Witt Time Discussed: 02:56 Consult Disposition: Will see in ED, Admit Departure - Departure Date of Disposition Decision: 02/17/19 Time of Disposition Decision: 02:56 DIAGNOSIS: Hyperglycemia, Nausea, DKA (diabetic ketoacidoses) Disposition: ADMITTED INPATIENT 09 Certified Medical Emergency: Emergent Condition: Stable Referrals and Follow-Ups: Saleem Rico MD [Primary Care Provider] - - Critical Care Note This patient required my direct & personal management of CC.: Yes Total Time (mins): 75 Critical Care Statement: This patient required my direct personal management to treat or rule out processes, the absence of which, could potentiallly result in sudden, clinically significant life or limb threatening deterioration. Attestation - Physician/ GERRY Attestation Patient care was provided by Advanced Practice Provider:: No The physician spent face to face time with patient:: Yes Advanced Practice Provider documentation review:: Supervising physician onsite and consulted in the evaluation and care of this patient. The physician did have a face to face encounter with the patient. This chart was documented by the indicated scribe, (Gabriela Villalobos, Aaron) and accurately reflects the services I performed and decisions made by me, Arti Gaona MD, as attested by the provider's signature.
[2019-02-17] MEDS ORDERED: HUMULIN R 100 UNIT in NS 100 ML IV SCH ×2 (01:45→04:45)
[2019-02-17 02:57] LABS: URINE SOURCE CLEAN CATCH
[2019-02-17 03:01] LABS: UR EPITHELIAL CELLS <10 /HPF (<10); URINE BACTERIA NEGATIVE /HPF; URINE RBC <10 /HPF (<10); URINE WBC <10 /HPF (<10)
[2019-02-17 03:10] LABS: UR AMPHETAMINES QUAL NONE DETECTED (NONE DETECT); UR BARBITUATES QUAL NONE DETECTED (NONE DETECT); UR BENZODIAZEPIN QUAL NONE DETECTED (NONE DETECT); UR CANNABINOIDS QUAL NONE DETECTED (NONE DETECT); UR COCAINE QUAL NONE DETECTED (NONE DETECT); UR METHADONE QUAL NONE DETECTED (NONE DETECT); UR OPIATES QUAL NONE DETECTED (NONE DETECT); UR OXYCODONE QUAL NONE DETECTED (NONE DETECT); UR PCP QUAL NONE DETECTED (NONE DETECT)
[2019-02-17 03:28] LABS: BILIRUBIN URINE NEGATIVE (NEGATIVE); BLOOD URINE NEGATIVE (NEGATIVE); COLOR YELLOW; GLUCOSE URINE >1000 mg/dL (NEGATIVE); KETONE URINE 80 mg/dL (NEGATIVE); LEUKOCYTES URINE NEGATIVE (NEGATIVE); NITRITE URINE NEGATIVE (NEGATIVE); PH URINE 5.5; PROTEIN URINE NEGATIVE (NEGATIVE); SP GRAVITY URINE 1.031; TURBIDITY URINE CLEAR (CLEAR); UROBILINOGEN URINE NORMAL (NORMAL)
[2019-02-17] MEDS ORDERED: MAGNESIUM SULFATE 2 GM/S.W.I. 2 GM/50 ML IVPB IV PRN ×2 (04:45→07:45)
[2019-02-17] MEDS ORDERED: D5 NS 1,000 ML IV PRN (04:45)
[2019-02-17] MEDS ORDERED: D50W SYRINGE IV PRN (04:45)
--- NOTE | 2019-02-17 05:09 | HISTORY AND PHYSICAL ---
PRIMARY CARE PHYSICIAN: Dr. Rico. CHIEF COMPLAINT: Elevated blood glucose, not feeling well. HISTORY OF PRESENTING ILLNESS: A 68-year-old female with a history of diabetes mellitus type 2, hyperlipidemia, hypertension, who has previously been in diabetic ketoacidosis had presented to emergency department with complaint of elevated blood glucose and not feeling well. The patient was evaluated in the ED. She was found to have a low CO2 of 14 and also blood glucose of 601. Was suspected that she was in early DKA. Subsequently, she will require admission for further management. At the time of my examination, patient denied any headache, fever, chills, chest pain, shortness of breath or weight changes, but complained of not feeling well, and being nauseated and having some abdominal cramps. PAST MEDICAL HISTORY: Include diabetes mellitus type 2 insulin dependent, hyperlipidemia, hypertension, history of noncompliance. PAST SURGICAL HISTORY: Right oophorectomy. ALLERGIES: No known drug allergies. CURRENT MEDICATIONS: Include atorvastatin 90 mg p.o. daily, NovoLog it is like a sliding scale, Lantus 100 units subcutaneous daily, losartan 25 mg p.o. daily, metoprolol 50 mg p.o. b.i.d., pregabalin 150 mg p.o. b.i.d., venlafaxine 180 mg p.o. b.i.d. SOCIAL HISTORY: She denies any history of smoking, alcohol or illicit drug use. FAMILY HISTORY: No history of coronary artery disease. REVIEW OF SYSTEMS: Fourteen point review of system listed as in HPI. Other systems negative. PHYSICAL EXAMINATION: GENERAL: Cooperative, friendly female. She is resting more comfortably now. VITAL SIGNS: Pulse 59, respiration 18, blood pressure 116/43. HEENT: Atraumatic, normocephalic. Extraocular movements intact. PERRLA. NECK: No masses. CHEST: Clear to auscultation. CARDIOVASCULAR: Regular rate and rhythm. ABDOMEN: Soft. Positive bowel sounds. EXTREMITIES: No edema. NEUROLOGIC: She is awake, alert, oriented x3. GENITOURINARY: No bladder distention. SKIN: Warm. LABORATORIES AND STUDIES: Sodium 131, potassium 5.2, chloride 87, CO2 is 14, BUN is 38, creatinine is 1.5, glucose is 601. WBCs 13.16, hemoglobin 12.6, hematocrit 37.3, platelets 252,000. UA still pending. Blood gas shows pH of 7.32. ASSESSMENT: This is a 68-year-old female with a history of diabetes mellitus type 2 on insulin, hyperlipidemia, hypertension, who had presented to emergency department with 1-day history of having elevated blood glucose with nausea and abdominal cramps. She was evaluated in the emergency department. Was suspected that she was in early DKA. Subsequently, she will require admission for further management. 1. Hyperglycemia, suspected early diabetic ketoacidosis. 2. Hypertension. 3. Hyperlipidemia. PLAN: 1. We will admit patient to ICU. 2. Continue patient on insulin drip, DKA protocol. 3. We will monitor blood pressure closely. 4. We will restart her other home medications. 5. We will put patient on DVT prophylaxis with SCD. 6. We will continue to follow, and reassess and make further recommendation based on patient's clinical course. cc: MD Saleem Lord MD
[2019-02-17] MEDS: NS 1,000 ML IV SCH ×4 (05:30→13:20)
[2019-02-17 05:46] LABS: MAGNESIUM 1.8 mg/dL (1.5-2.7); PHOSPHORUS 4.1 mg/dL (2.7-4.5)
[2019-02-17 05:47] LABS: HEMOGLOBIN A1C 11.4 % (4.8-6.0)
--- NOTE | 2019-02-17 06:00 | Diag Imaging Result Doc PS360 ---
EXAM: CHEST-PORTABLE HISTORY: leukocytosis, DKA TECHNIQUE: Chest single view COMPARISON: 03/07/2018 FINDINGS: The lungs are well expanded. The heart is not enlarged. The vessels are not distended. There are no infiltrates. No effusion identified. IMPRESSION: No pneumonia Electronically signed by Jamir Ken 02/17/2019 5:57 AM
[2019-02-17 06:13] LABS: CALCIUM 8.5 mg/dL (8.8-10.2); CREATININE 1.4 mg/dL (0.5-0.9); MAGNESIUM 1.9 mg/dL (1.5-2.7); POTASSIUM 4.1 mmol/L (3.5-5.1)
[2019-02-17 06:24] LABS: ACETONE SERUM NEGATIVE (NEGATIVE)
--- NOTE | 2019-02-17 06:33 | Diag Imaging Result Doc PS360 ---
CT ABD/PELVIS W/IV CONT ONLY - 02/17/2019 INDICATION: nausea x2 weeks, recent colonscopy COMPARISON: 09/24/2015 FINDINGS: The lung bases are clear and the heart size is normal. The liver, gallbladder, spleen, pancreas, adrenals, and kidneys are normal. No bowel obstruction or inflammation. No constipation. Urinary bladder, uterus, and rectum are normal. There are moderate degenerative changes of the spine. No acute or suspicious bony lesion. IMPRESSION: Negative exam. This exam was performed using automated exposure control, adjustment of mA or kV according to patient size, and/or use of iterative reconstruction technique Electronically signed by Chago Sloan 02/17/2019 6:30 AM
[2019-02-17] MEDS ORDERED: POTASSIUM CHLORIDE 20 MEQ/SWI 20 MEQ/100 ML IVPB IV PRN (07:45)
[2019-02-17] MEDS ORDERED: POTASSIUM CHLORIDE 40 MEQ/SWI 40 MEQ/100 ML IVPB IV PRN (07:45)
[2019-02-17] MEDS ORDERED: SODIUM PHOSPHATE 30 MMOL in D5W 250 ML IV PRN (07:45)
[2019-02-17] MEDS ORDERED: SODIUM BICARBONATE 8.4% 100 MEQ in STERILE WATER INJ. 500 ML IV PRN (07:45)
[2019-02-17] MEDS ORDERED: D5 1/2 NS 1,000 ML IV SCH ×2 (07:45)
[2019-02-17] MEDS ORDERED: POTASSIUM CHLORIDE 10% LIQUID PO PRN (07:45)
[2019-02-17] MEDS ORDERED: POTASSIUM CHLORIDE 20% LIQUID PO PRN (07:45)
[2019-02-17] MEDS: LYRICA PO SCH ×2 (08:07→21:08)
[2019-02-17] MEDS: LOPRESSOR PO SCH ×2 (08:07→21:11)
[2019-02-17] MEDS: EFFEXOR XR PO SCH (08:07)
[2019-02-17] MEDS: NEO-SYNEPHRINE 50 MG in NS 250 ML IV SCH ×2 (09:18→23:42)
[2019-02-17] MEDS: PROTONIX IV SCH (10:53)
[2019-02-17] MEDS: LOVENOX SUBQ SCH (10:53)
[2019-02-17 11:13] LABS: CALCIUM 8.5 mg/dL (8.8-10.2); MAGNESIUM 1.9 mg/dL (1.5-2.7); PHOSPHORUS 3.3 mg/dL (2.7-4.5); POTASSIUM 4.9 mmol/L (3.5-5.1)
[2019-02-17] MEDS ORDERED: LANTUS INSULIN SUBQ ONE (13:52)
[2019-02-17] MEDS: HUMALOG SUBQ SCH ×2 (15:58→21:24)
[2019-02-17] MEDS: ROCEPHIN 1 GM in NS 50 ML IV SCH (17:12)
[2019-02-17] MEDS: NS + KCL 20 MEQ 1,000 ML IV SCH ×2 (17:13→23:42)
--- NOTE | 2019-02-17 17:25 | PROGRESS NOTE ---
DATE: 02/17/2019 Ms Cardona is a 68-year-old white female patient, known case of diabetes mellitus, admitted with uncontrolled diabetes, found to be in diabetic ketoacidosis. I evaluated patient in the morning. The patient lab data, admission history and physical noted. The patient denied any typical chest pain or unusual shortness of breath. No dysuria or hematuria. Occasional cough. Her vital signs noted the blood pressure was low. I started patient on [*]support, along with fluid. Patient responded well. Her blood work improved. We took her off the insulin drip. Overall patient is doing better. I continue IV antibiotics for a low-grade fever. OBJECTIVE: Vital Signs: Noted. Neck: Supple. No JVD. Lungs: Bilateral good air entry present. Cardiovascular: S1 and S2 heard. Abdomen: Soft, globular. Bowel sounds present. Central Nervous System: Alert, awake, able to move all 4 limbs. DIAGNOSTIC STUDIES: Patient lab data noted. ASSESSMENT AND PLAN: Overall patient is doing better. We will continue IV fluid, monitor labs, gradually advance her diet. Her problems include: 1. Diabetes ketoacidosis. 2. Hypotension, improved. 3. Low-grade fever. 4. Hyperlipidemia. 5. Peripheral neuropathy. cc: Saleem Rico MD
[2019-02-17] MEDS: LIPITOR PO SCH (21:08)
[2019-02-17 21:13] LABS: AGAP 11; BUN 27 mg/dL (8-22); CALCIUM 8.1 mg/dL (8.8-10.2); CHLORIDE 106 mmol/L (98-107); COSMO 289; CREATININE 0.9 mg/dL (0.5-0.9); ESTIMATED GFR > 60; GLUCOSE 314 mg/dL (70-104); POTASSIUM 4.8 mmol/L (3.5-5.1); SODIUM 136 mmol/L (136-145); TCO2 19 mmol/L (25-35)
[2019-02-18] MEDS: NS + KCL 20 MEQ 1,000 ML IV SCH ×2 (06:46→12:52)
[2019-02-18] MEDS: HUMALOG SUBQ SCH ×4 (06:47→21:33)
--- NOTE | 2019-02-18 07:28 | Diag Imaging Result Doc PS360 ---
EXAM: CHEST-PORTABLE INDICATION: sob TECHNIQUE: One view COMPARISON: 02/17/2019 FINDINGS: The lungs remain grossly clear. No new consolidation is identified. Cardiac silhouette is stable. IMPRESSION: Stable chest. Electronically signed by Winston Franz 02/18/2019 7:25 AM
--- NOTE | 2019-02-18 07:59 | PROGRESS NOTE ---
DATE: 02/18/2019 SUBJECTIVE: Ms. Cardona is feeling better. The patient denied any high-grade fever or chills. Her blood pressure was improving. Nickolas-Synephrine drip was discontinued. No typical chest pain or palpitations. No nausea or vomiting. This morning her blood sugar was low. No heat or cold intolerance. Denied any diarrhea, blood, or mucus in the stool. Admission history and physical as noted. OBJECTIVE: Blood pressure 143/49, pulse 79, and respirations 21.HEENT: Head atraumatic and normocephalic. Opp conjunctivae. Anicteric sclerae. Extraocular muscle movements are normal. Fundus cannot be penetrated. Good oral hygiene. No tonsillopharyngeal congestion or exudate. Ears and nose benign. Neck: Supple. No JVD, thyromegaly or lymphadenopathy. Chest: Bibasilar crepitations. Heart: S1 and S2 heard. Abdomen: Soft and nontender. Bowel sounds present. CURER FOAM RUBBER: Alert and awake, able to move all 4 limbs. CONSIDERATION: Diabetic ketoacidosis clinically improved. Insulin drip was discontinued. The patient is on long-acting insulin and sliding scale. Blood sugar was low. I resumed her diet. Possible UTI. Patient is on Rocephin. Gastritis and reflux disease. Diabetic peripheral neuropathy on Lyrica. Situational depression. Hyperlipidemia on Lipitor. I am going to watch patient in the ICU if blood pressure improves, and she tolerates food well. Plan is to transfer patient to the floor around noon time. cc: Saleem Rico MD
[2019-02-18 08:49] LABS: BASO# 0.03 X1000 (0.0-0.2); BASO% 0.4 % (0.0-0.8); EOS# 0.09 X1000 (0.0-0.7); EOS% 1.1 % (0.0-10.0); HEMATOCRIT 34.3 % (37.0-47.0); HEMOGLOBIN 11.2 g/dL (12.0-16.0); IMM GRAN# 0.02 X1000 (0.0-0.04); IMM GRAN% 0.2 % (0.0-0.5); LYMPH# 2.35 X1000 (1.2-3.4); LYMPH% 28.3 % (20.5-51.1); MCH 30.6 PG (27-31); MCHC 32.7 g/dL (33-37); MCV 93.7 FL (81-99); MONO# 0.31 X1000 (0.11-0.59); MONO% 3.7 % (1.7-9.3); MPV 10.1 FL (7.4-10.4); NEUT# 5.51 X1000 (1.4-6.5); NEUT% 66.3 % (42.2-75.2); PLT 189 X1000 (130-400); RBC 3.66 XMIL (4.2-5.4); RDW 13.6 % (11.5-14.5); WBC 8.31 X1000 (4.8-10.8)
[2019-02-18 09:22] LABS: AGAP 10; ALB/GLOB RATIO 1.4; ALKALINE PHOSPHATASE 50 U/L (32-104); BUN 16 mg/dL (8-22); CALCIUM 8.4 mg/dL (8.8-10.2); CHLORIDE 107 mmol/L (98-107); COSMO 277; CREATININE 0.6 mg/dL (0.5-0.9); ESTIMATED GFR > 60; GLUCOSE 196 mg/dL (70-104); GOT 13 U/L (10-30); GPT 10 U/L (10-36); MAGNESIUM 1.7 mg/dL (1.5-2.7); POTASSIUM 4.3 mmol/L (3.5-5.1); SODIUM 135 mmol/L (136-145); TCO2 18 mmol/L (25-35); TOTAL PROTEIN 5.2 g/dL (6.3-8.3)
[2019-02-18] MEDS: LOPRESSOR PO SCH ×2 (09:47→21:33)
[2019-02-18] MEDS: EFFEXOR XR PO SCH (09:47)
[2019-02-18] MEDS: PROTONIX IV SCH (09:48)
[2019-02-18] MEDS: LYRICA PO SCH ×2 (09:48→21:33)
[2019-02-18] MEDS: LOVENOX SUBQ SCH (09:48)
[2019-02-18] MEDS: SODIUM CHLORIDE 0.9% INJ SCH (09:48)
[2019-02-18] MEDS: ROCEPHIN 1 GM in NS 50 ML IV SCH (16:28)
[2019-02-18] MEDS: LIPITOR PO SCH (21:33)
[2019-02-19] MEDS: HUMALOG SUBQ SCH ×4 (06:42→22:02)
--- NOTE | 2019-02-19 07:23 | PROGRESS NOTE ---
DATE: 02/19/2019 SUBJECTIVE: Ms Cardona is doing better. Her blood sugar was staying high. Oral intake is fair. At times chills. No nausea or vomiting. No diarrhea. Denied any dysuria. No heat or cold intolerance. The patient admitted with diabetic ketoacidosis. OBJECTIVE: Vital signs: Noted. Neck: Supple. No JVD. Lungs: Bibasilar crepitations. Heart: S1 and S2 heard. Abdomen: Soft, nontender. Bowel sounds present. Extremities: No cyanosis, clubbing. No acute DVT. Central nervous system: Alert, awake, able to move all 4 limbs. LABORATORY DATA: Noted. PLAN: I am going to increase her insulin to 24 units. Ambulate the patient. Monitor Accu-Chek. Give her a proper diet. If clinical condition permits, I am planning to discharge patient home tomorrow. cc: Saleem Rico MD
[2019-02-19] MEDS: LYRICA PO SCH ×2 (09:41→22:02)
[2019-02-19] MEDS: LOPRESSOR PO SCH ×2 (09:42→22:02)
[2019-02-19] MEDS: SODIUM CHLORIDE 0.9% INJ SCH (09:42)
[2019-02-19] MEDS: LOVENOX SUBQ SCH (09:42)
[2019-02-19] MEDS: EFFEXOR XR PO SCH (09:42)
[2019-02-19] MEDS: PROTONIX IV SCH (09:42)
[2019-02-19] MEDS: LANTUS INSULIN SUBQ SCH (10:56)
[2019-02-19] MEDS: ROCEPHIN 1 GM in NS 50 ML IV SCH (15:24)
[2019-02-19] MEDS: LIPITOR PO SCH (22:02)
[2019-02-20] MEDS: HUMALOG SUBQ SCH (06:20)
[2019-02-20 07:08] LABS: BASO# 0.02 X1000 (0.0-0.2); BASO% 0.4 % (0.0-0.8); EOS# 0.14 X1000 (0.0-0.7); EOS% 2.8 % (0.0-10.0); HEMATOCRIT 35.2 % (37.0-47.0); HEMOGLOBIN 11.6 g/dL (12.0-16.0); LYMPH# 1.75 X1000 (1.2-3.4); LYMPH% 34.9 % (20.5-51.1); MCH 30.4 PG (27-31); MCV 92.4 FL (81-99); MONO# 0.31 X1000 (0.11-0.59); MONO% 6.2 % (1.7-9.3); MPV 9.7 FL (7.4-10.4); NEUT% 55.7 % (42.2-75.2); PLT 178 X1000 (130-400); RBC 3.81 XMIL (4.2-5.4); RDW 12.9 % (11.5-14.5); WBC 5.02 X1000 (4.8-10.8)
[2019-02-20 07:30] VITALS: BP 171/73
[2019-02-20 07:41] LABS: AGAP 10; ALB/GLOB RATIO 1.5; ALBUMIN 3.2 g/dL (3.5-5.0); ALKALINE PHOSPHATASE 61 U/L (32-104); BUN 13 mg/dL (8-22); CALCIUM 8.8 mg/dL (8.8-10.2); CHLORIDE 101 mmol/L (98-107); COSMO 283; CREATININE 0.8 mg/dL (0.5-0.9); ESTIMATED GFR > 60; GLUCOSE 153 mg/dL (70-104); GOT 15 U/L (10-30); GPT 12 U/L (10-36); MAGNESIUM 1.7 mg/dL (1.5-2.7); POTASSIUM 3.8 mmol/L (3.5-5.1); SODIUM 140 mmol/L (136-145); TCO2 29 mmol/L (25-35); TOTAL BILIRUBIN 0.38 mg/dL (0.20-1.00); TOTAL PROTEIN 5.4 g/dL (6.3-8.3)
[2019-02-20] MEDS: LYRICA PO SCH (08:00)
[2019-02-20] MEDS: LOPRESSOR PO SCH (08:01)
[2019-02-20] MEDS: EFFEXOR XR PO SCH (08:01)
[2019-02-20] MEDS: LANTUS INSULIN SUBQ SCH (08:08)
[2019-02-20] MEDS ORDERED: PROTONIX PO SCH (09:00)
--- NOTE | 2019-02-21 08:45 | DISCHARGE SUMMARY ---
ADMISSION DATE: 02/17/2019 DISCHARGE DATE: 02/20/2019 FINAL DISCHARGE DIAGNOSIS: 1. Diabetic ketoacidosis. 2. Systemic inflammatory response syndrome. 3. Diabetic peripheral neuropathy. 4. Hyperlipidemia. 5. Hypertension. 6. Depression. 7. History of hyperthyroidism HISTORY: Ms. Cardona is a 68-year-old white female patient, known case of diabetes mellitus, hypertension, hyperlipidemia, diabetic ketoacidosis, admitted with uncontrolled diabetes. The patient found to have high anion gap metabolic acidosis. The patient also had nausea and vomiting. The patient was evaluated in the ER, admitted for further care. The patient was started on insulin drip. She was admitted to ICU, given adequate fluid. Her clinical condition gradually improved and stabilized. Insulin drip was discontinued as per protocol. Her anion gap improved and the patient started doing much better. She was tolerating food well. I transferred patient to telemetry bed. Overall patient is doing better. I resumed her insulin along with sliding scale. No fever or chills. No nausea, vomiting. Her vital signs noted. PHYSICAL EXAMINATION: Neck: Neck is supple. No JVD. Lungs: Bibasilar crepitations. Cardiovascular: Heart S1 and S2 heard. Abdomen: Soft, nontender. Bowel sounds present. TELEPHONE APPOINTMENT CLERK: Alert, awake, able to move all 4 limbs. LAB DATA: Her blood work done today: WBC count 5.02, hemoglobin 11.6, hematocrit 35.2, platelet count 178,000. Blood gas on admission, pH 7.32, pCO2 26, PO2 was 85. Electrolytes done today sodium 140 potassium 3.8, anion gap was 10 blood sugar was 153, LFT were benign. Urinalysis was benign. Urine drug screen was negative. The patient's CT scan of the abdomen and pelvis was negative. Her chest x-ray was also negative there was no pneumonia. DISCHARGE INSTRUCTIONS: Overall patient received maximum benefit of hospitalization. I had lengthy discussion with the patient importance of diet, monitoring Accu-Chek not to miss any meal. I discussed with the patient signs symptoms of hypo and hyperglycemia and what to do. FOLLOWUP: Follow up with me this coming Sunday. In case of more distress, call us back or go to emergency room. I gave her Ceftin for 5 more days for possible bronchitis. Continue rest of the treatment. cc: Saleem Rico MD
== END 2019-02-20 09:18 | disposition home or self-care (01) | DRG 638 ==
LOC: SUPCPDRO → ED 00:23 → ICU 03:51 → SUATTDRO 03:51 → ICU 04:50 → 4N 02-18 18:30
PROVIDERS: ADMIT Internal Medicine; ATTEND Internal Medicine

== ENCOUNTER 2019-02-21 11:00 | Inpatient (IN) ==
[2019-02-21] MEDS ORDERED: HUMULIN R IV ONE ×3 (11:19→16:31)
[2019-02-21] MEDS ORDERED: NS 1,000 ML IV ONE ×2 (11:20→11:29)
[2019-02-21 11:50] LABS: BASO# 0.02 X1000 (0.0-0.2); BASO% 0.2 % (0.0-0.8); EOS# 0.02 X1000 (0.0-0.7); EOS% 0.2 % (0.0-10.0); HEMATOCRIT 39.8 % (37.0-47.0); HEMOGLOBIN 13.3 g/dL (12.0-16.0); IMM GRAN# 0.02 X1000 (0.0-0.04); IMM GRAN% 0.2 % (0.0-0.5); LYMPH# 0.53 X1000 (1.2-3.4); LYMPH% 5.4 % (20.5-51.1); MCH 30.7 PG (27-31); MCHC 33.4 g/dL (33-37); MCV 91.9 FL (81-99); MONO# 0.27 X1000 (0.11-0.59); MONO% 2.8 % (1.7-9.3); MPV 10.5 FL (7.4-10.4); NEUT% 91.2 % (42.2-75.2); PLT 218 X1000 (130-400); RBC 4.33 XMIL (4.2-5.4); RDW 12.9 % (11.5-14.5); WBC 9.76 X1000 (4.8-10.8)
[2019-02-21 12:15] LABS: ALB/GLOB RATIO 1.3; CALCIUM 9.4 mg/dL (8.8-10.2); MAGNESIUM 1.6 mg/dL (1.5-2.7); POTASSIUM 4.8 mmol/L (3.5-5.1); TOTAL BILIRUBIN 0.75 mg/dL (0.20-1.00); TOTAL PROTEIN 7.1 g/dL (6.3-8.3)
[2019-02-21 12:29] LABS: BANDS 6 % (0-1); EOS 2 % (1-10); LYMPHS 6 % (21-51); SEGS 86 % (42-75)
--- NOTE | 2019-02-21 13:16 | EKG Report ---
Test Performed on : 02/21/2019 11:21:03 AM Test Reason : ED. No order in [place] Blood Pressure : / mmHG Vent. Rate : 100 BPM Atrial Rate : 100 BPM P-R Int : 148 ms QRS Dur : 072 ms QT Int : 388 ms P-R-T Axes : 078 037 065 degrees QTc Int : 500 ms Normal sinus rhythm. Biatrial enlargement Septal infarct , age undetermined Abnormal ECG When compared with ECG of 06-OCT-2017 17:14, No significant change was found Unconfirmed Result
[2019-02-21 14:44] LABS: URINE SOURCE CATH
[2019-02-21 14:47] LABS: BILIRUBIN URINE NEGATIVE (NEGATIVE); BLOOD URINE NEGATIVE (NEGATIVE); COLOR STRAW; GLUCOSE URINE >1000 mg/dL (NEGATIVE); KETONE URINE 100 mg/dL (NEGATIVE); LEUKOCYTES URINE NEGATIVE (NEGATIVE); NITRITE URINE NEGATIVE (NEGATIVE); PH URINE 5.5; PROTEIN URINE NEGATIVE (NEGATIVE); SP GRAVITY URINE 1.025; TURBIDITY URINE CLEAR (CLEAR); UR EPITHELIAL CELLS <10 /HPF (<10); URINE BACTERIA NEGATIVE /HPF; URINE RBC <10 /HPF (<10); URINE WBC <10 /HPF (<10); UROBILINOGEN URINE NORMAL (NORMAL)
[2019-02-21 15:08] LABS: ALLEN TEST YES; BE -7.3 mmoll (-3.0-3.0); BLOOD TYPE ARTERIAL; HCO3-(ACT) 19.2 mmoll (20.0-26.0); METHB 0.8 % (0.0-1.5); O2(CT) 15.5 mL/dL (15.0-23.0); O2HB 97.1 % (95.0-99.0); PCO2(98.6) 29 mmHg (35-45); PO2(98.6) 109 mmHg (60-100); SAMPLE BLOOD; SAO2 99.5 % (95.0-100.0); THB 11.2 g/dL (11.5-17.4); pH(98.6) 7.37 (7.35-7.45)
[2019-02-21 15:10] LABS: MODALITY ROOM AIR
--- NOTE | 2019-02-21 15:33 | PROVIDER DOCUMENTATION ---
This chart was entered by Destinee Sandoval Scribe, acting as scribe for Ronnie Julio MD. HPI-General Adult - General Chief Complaint: High Blood Sugar Stated Complaint: HIGH BLOOD SUGAR,NAUSEA,DIABETIC Time Seen by Provider: 02/21/19 11:17 Source: patient, family, other (neighbor @ bedside) Allergies/Adverse Reactions: Patient Allergies Allergy/AdvReac Type Severity Reaction Status Date / Time No Known Allergies Allergy Verified 03/07/18 16:02 Home Medications: Home Medication List Medication Instructions Recorded Confirmed Last Taken Type ATORVAstatin [Lipitor] 90 mg PO DAILY 01/21/16 02/17/19 10/22/16 20:00 History Metoprolol [Lopressor] 50 mg PO BID 01/21/16 02/17/19 10/22/16 20:00 History Pregabalin [Lyrica] 150 mg PO BID capsule 10/26/16 02/17/19 Unknown Rx Losartan Potassium 25 mg PO DAILY 02/17/19 02/17/19 Unknown History CefUROXIME [Ceftin] 500 mg PO Q12HR #10 tab 02/20/19 Unknown Rx Insulin Glargine [Lantus Insulin] 26 unit SUBQ DAILY unit 02/20/19 Unknown Rx Omeprazole [Prilosec] 20 mg PO DAILY@0700 #30 cap 02/20/19 Unknown Rx Venlafaxine E.r. [Effexor Xr] 150 mg PO DAILY cap 02/20/19 Unknown Rx - History of Present Illness -Gen Adult Nature of Presenting Problems: 68 yowf presents to the ed with c/o elevated BGL <500 and does not feel well. pt was released yesterday from [facility] after a stay. pt takes Lantus in the mornings and takes sliding scale throughout the day. pt sts when left [facility] yesterday [facility] 159 went home last night is was 88 before dinner. pt then checked later in the evening was 44 so pt ate some pineapple and when she woke this am was greater then 500. neighbor brought pt back to ed due to elvated BGL, fatigue and pt just not feeling well Location of Pain/Injury: reports: generalized Quality of Pain: reports: other (weakness) Severity: reports: moderate Onset/Duration: reports: last night Timing: reports: still present, getting worse Context/Activities at Onset: reports: light activity Modifying Factors: improves with: nothing Associated Symptoms: reports: fatigue, malaise, nausea, weakness. denies: fever/chills, shortness of breath, vomiting Similar Symptoms Previously?: Yes Recently seen or treated by another doctor?: Yes (was dc from [facility] yesterday) Review of Systems - Adult - REVIEW OF SYSTEMS - ADULT Constitutional: reports: see HPI, fatique. denies: chills, fever Eyes: reports: no symptoms reported Ears, Nose, Mouth & Throat: reports: no symptoms reported Cardiovascular: denies: chest pain, palpitations Respiratory: denies: cough, shortness of breath, wheezing Gastrointestinal: reports: nausea. denies: abdominal pain, diarrhea, vomiting Genitourinary: reports: no symptoms reported Musculoskeletal: reports: see HPI, muscle aches. denies: neck pain Integumentary: reports: no symptoms reported Neurological: denies: dizziness/vertigo, headache/migraines Psychiatric: reports: no symptoms reported Endocrine: reports: see HPI, increased thirst Hematologic/Lymphatic: reports: no symptoms reported Allergic/Immunologic: reports: no symptoms reported All Other Systems: Reviewed and Negative Past History - Adult - PAST MEDICAL HISTORY-ADULT Review of Records: reports: Old Records Reviewed, Nursing Assessment Review, Medications Reviewed, Social history reviewed & non-contributory. Major Childhood Illnesses: reports: denies history Cardiovascular: reports: HTN, hyperlipidemia Respiratory: reports: denies history Gastrointestinal: reports: denies history Obstetrical/Gynecological: reports: denies history Genitourinary: reports: denies history Musculoskeletal: reports: denies history Neurological: reports: denies history Psychiatric: reports: depression Endocrine/Immune: reports: Diabetes, thyroid disorder (hyperthyroid) Other Conditions: reports: denies history - PRIOR SURGERIES/PROCEDURES Surgical/Procedure History: reports: hysterectomy, other (right ovary removed) - PRIOR HOSPITALIZATIONS Prior Hospitalizations: reports: for similar symptoms - IMMUNIZATION STATUS Childhood Immunizations: See Nurse Assessment Flu Vaccine: See Nurse Assessment - FAMILY HISTORY Family History: reviewed, not pertinent - SOCIAL HISTORY Smoking: denies Substance Use: denies Living Situation: alone Physical Exam-General - PHYSICAL EXAM-ADULT Initial Vital Signs Reviewed: Yes - CONSTITUTIONAL General Appearance: alert, mild distress (pt looks to not feel well) - EYES Eyes: PERRL/EOMI, pink conjunctivae - HEAD, EARS, NOSE, MOUTH & THROAT HENMT: moist mucous membranes, dental decay - NECK Neck: non-tender, full range of motion, supple, normal inspection - RESPIRATORY Respiratory: chest non-tender, lungs clear, normal breath sounds - CARDIOVASCULAR Cardiovascular: normal peripheral pulses, regular rate, rhythm - CHEST (BREASTS) Chest/Breast: deferred - GASTROINTESTINAL (ABDOMEN) Abdominal Exam: normal bowel sounds, non tender, soft, other (c/o nausea) - GENITOURINARY Female Genitalia/Pelvic Exam: deferred Rectal Exam: deferred Hemoccult Exam: deferred - LYMPHATIC Lymphatic: no adenopathy - MUSCULOSKELETAL Back Exam: no CVA tenderness, no vertebral tenderness Extremity: normal range of motion, non-tender, normal inspection, no pedal edema , no calf tenderness, normal capillary refill, pelvis stable - SKIN Integumentary: normal color, normal turgor, warm/dry - NEUROLOGIC Neurologic: grossly normal - PSYCHIATRIC Psych/Mental Status: normal mood/affect, normal thought content, normal thought process, oriented x 3 Progress - PLAN OF CARE/RESULTS Progress/Plan/Lab Results: Vital Signs - 8 hr 02/21/19 11:11 Temperature 97.5 F L Pulse Rate 97 H Respiratory Rate 22 Blood Pressure 133/89 O2 Sat by Pulse Oximetry 100 Laboratory Results - last 24 hr 02/21/19 11:10 POC Glucose 500 H D Orders Category Date Time Status CBC WITH DIFF [HEME] Stat Lab 02/21/19 11:20 Uncollected COMPREHENSIVE METABOLIC PANEL [CHEM] Stat Lab 02/21/19 11:20 Uncollected MAGNESIUM [CHEM] Stat Lab 02/21/19 11:20 Uncollected URINALYSIS W/POSS RFLX CULT [URINALYSIS] Stat Lab 02/21/19 11:20 Uncollected 0.9% Sodium Chloride Inj [Ns] 1,000 ml Med 02/21/19 11:20 Active IV 999 mls/hr Insulin Human Regular [Humulin R] Med 02/21/19 11:19 Discontinued 10 unit IV NOW ONE Result Diagrams: 02/21/19 11:29 02/21/19 11:29 - REASSESSMENT Reassessment #1 Time Reassessed: 12:42 Status: unchanged (BGL greater then 500) Reassessment Comment: at bedside Reassessment #2 Time Reassessed: 14:39 Status: improving (BGL 458 and last insulin given over an hour prior) Reassessment Comment: at bedside - EKG 1 Time of EKG reading by physician:: 11:21 EKG Read and Signed by:: Ronnie Julio EKG Interpretation (*Must complete 3 of following elements*): Abnormal Rate: 100 Rhythm: nsr [place]: normal QRS: other (biatrial enlargement) MT Interval: normal ST Wave: normal Comments: septal infarct, age undetermined - CONSULTS/PCP/HOSPITALIST Notification #1 *Consult/PCP/Hospitalist*: dr cruz pcp Time Discussed: 15:29 Consult Disposition: Admit Departure - Departure Date of Disposition Decision: 02/21/19 Time of Disposition Decision: 15:33 DIAGNOSIS: DKA (diabetic ketoacidoses) Disposition: ADMITTED INPATIENT 09 Certified Medical Emergency: Emergent Condition: Critical Referrals and Follow-Ups: Saleem Cruz MD [Primary Care Provider] - - Critical Care Note This patient required my direct & personal management of CC.: Yes Total Time (mins): 38 Critical Care Statement: This patient required my direct personal management to treat or rule out processes, the absence of which, could potentiallly result in sudden, clinically significant life or limb threatening deterioration. Attestation - Physician/ GERRY Attestation Patient care was provided by Advanced Practice Provider:: No The physician spent face to face time with patient:: Yes Advanced Practice Provider documentation review:: Supervising physician onsite and consulted in the evaluation and care of this patient. The physician did have a face to face encounter with the patient. This chart was documented by the indicated scribe, (Destinee Sandoval Scribe) and accurately reflects the services I performed and decisions made by me, Ronnie Julio MD, as attested by the provider's signature.
[2019-02-21] MEDS ORDERED: HUMULIN R 100 UNIT in NS 100 ML IV SCH ×2 (15:45→16:45)
[2019-02-21] MEDS ORDERED: D50W SYRINGE IV PRN (16:31)
[2019-02-21] MEDS ORDERED: HUMALOG SUBQ ONE (17:49)
[2019-02-21] MEDS: REGLAN PO SCH (18:22)
[2019-02-21] MEDS: LANTUS INSULIN SUBQ SCH (18:22)
[2019-02-21] MEDS: NS + KCL 20 MEQ 1,000 ML IV SCH (18:22)
[2019-02-21] MEDS: LYRICA PO SCH (20:09)
[2019-02-21 20:12] LABS: BASO# 0.02 X1000 (0.0-0.2); BASO% 0.3 % (0.0-0.8); EOS# 0.01 X1000 (0.0-0.7); EOS% 0.1 % (0.0-10.0); HEMATOCRIT 35.9 % (37.0-47.0); LYMPH# 0.35 X1000 (1.2-3.4); LYMPH% 4.8 % (20.5-51.1); MCH 30.9 PG (27-31); MCHC 33.4 g/dL (33-37); MCV 92.5 FL (81-99); MONO% 4.1 % (1.7-9.3); MPV 9.8 FL (7.4-10.4); NEUT% 90.7 % (42.2-75.2); PLT 213 X1000 (130-400); RBC 3.88 XMIL (4.2-5.4); WBC 7.28 X1000 (4.8-10.8)
[2019-02-21 20:17] LABS: MAGNESIUM 1.7 mg/dL (1.5-2.7); PHOSPHORUS 2.7 mg/dL (2.7-4.5)
[2019-02-21 20:19] LABS: AMYLASE 26 U/L (20-200); CK PROFILE 47 U/L (24-173); LIPASE 11 U/L (13-60)
[2019-02-21] MEDS: LOPRESSOR PO SCH (20:21)
[2019-02-21 20:27] LABS: BANDS 1 % (0-1); LYMPHS 6 % (21-51); MONO 3 % (1-9); SEGS 90 % (42-75)
[2019-02-21 20:29] LABS: ALB/GLOB RATIO 1.6; ALBUMIN 3.5 g/dL (3.5-5.0); CALCIUM 8.1 mg/dL (8.8-10.2); POTASSIUM 3.8 mmol/L (3.5-5.1); TOTAL BILIRUBIN 0.32 mg/dL (0.20-1.00); TOTAL PROTEIN 5.7 g/dL (6.3-8.3)
[2019-02-21 21:47] LABS: ALLEN TEST YES; BLOOD TYPE ARTERIAL; HCO3-(ACT) 24.9 mmoll (20.0-26.0); METHB 1.3 % (0.0-1.5); O2(CT) 15.5 mL/dL (15.0-23.0); O2HB 94.2 % (95.0-99.0); PCO2(98.6) 35 mmHg (35-45); PO2(98.6) 67 mmHg (60-100); SAMPLE BLOOD; SAO2 96.8 % (95.0-100.0); THB 11.7 g/dL (11.5-17.4); pH(98.6) 7.44 (7.35-7.45)
[2019-02-21 21:48] LABS: MODALITY ROOM AIR
--- NOTE | 2019-02-22 00:57 | HISTORY AND PHYSICAL ---
CHIEF COMPLAINT: Elevated blood sugar. HISTORY OF PRESENT ILLNESS: Ms. Cardona, a 68-year-old white female patient, recently admitted to hospital with diabetic ketoacidosis. Patient was discharged home yesterday. Patient was doing well. Her oral intake was good. Patient's blood sugar was also doing better yesterday. It was 121 yesterday morning. Night before, it was 159. Prior to that, 193. I had lengthy discussion with the patient about proper management of diabetes, hypo- and hyperglycemia. Patient claimed she was doing better yesterday evening. Her blood sugar was low. It went down to 44 and patient ate some pineapple. This morning when she woke up, her blood sugar was more than 500. Patient was weak and lethargic. Patient did have some nausea. Patient claimed she was not feeling well. They called my office and we sent patient to emergency room for further workup, blood work. In the emergency room, her blood sugar was more than 500. Patient was given IV insulin and IV fluid. Patient had blood gas done. Her pH was 7.37, pCO2 was 29 and pO2 was 109. This was done on room air. In the chemistry panel, her CO2 was 19, anion gap was 26 and blood sugar was 655. Patient did have some element of acidosis, uncontrolled blood sugar. Patient received 2 L of fluid, IV insulin. Clinically, patient was doing better. ER physician's impression was mild ketoacidosis and he recommended to send patient to the floor. Patient denied any major headache. No atypical chest pain or palpitation. No unusual cough or expectoration. Patient was feeling weak and tired. No dysuria or hematuria. No diarrhea, blood or mucus in the stool. No focal numbness, tingling, weakness. Patient claimed when she woke up this morning she did not take her insulin. Patient is poorly compliant to medication and treatment regimen and her diabetes is also brittle and she does have elevated blood sugar. ALLERGIES: No known drug allergy. MEDICATION: Lipitor, Lantus, Cozaar, Lopressor, Prilosec, Lyrica, Effexor. PAST MEDICAL HISTORY: Hypertension, hyperlipidemia, situational depression, peripheral neuropathy, gastritis and reflux disease, hyperthyroidism, possible gastroparesis, history of abnormal mammogram, osteoarthritis. PERSONAL HISTORY: Single. Lives with a brother. Nonsmoker. Denied alcohol or substance abuse. Noncompliant to diet and medication. FAMILY HISTORY: Noncontributory. REVIEW OF SYSTEM: As per HPI. Patient does have unquantified weight loss. No heat or cold intolerance. PHYSICAL EXAMINATION: GENERAL: Elderly white female patient in mild distress. rest from the chart. HEENT: Head atraumatic, normocephalic. Be[place] conjunctivae. Anicteric sclerae. Extraocular muscle movement normal. Fundus cannot be penetrated. Good oral hygiene. No tonsillopharyngeal congestion or exudate. Ear and nose benign. NECK: Supple. No JVD, thyromegaly or lymphadenopathy. CHEST: Bilateral good air entry present. Few basilar crepitation. No rales. CARDIOVASCULAR: S1 and S2 heard. No gallop or thrill. ABDOMEN: Soft. No distention. Bowel sounds present. Mild epigastric tenderness. EXTREMITIES: No cyanosis, clubbing or acute DVT. CENTRAL NERVOUS SYSTEM: Alert, awake, able to move all 4 limbs. Crepitation about the knee joint. LABORATORY DATA: Urinalysis was benign other than glycosuria. CBC: WBC count 9.76, hemoglobin 13.3, hematocrit 39.8, platelet count 218. Initial blood gas: pH 7.37, pCO2 of 29, pO2 of 109. Patient's pH minimally acidotic. CO2 was low, could be compensated. Blood sugar 655. Anion gap was 26. Patient did have mild ketoacidosis but I do not think it was full blown. Sodium 129, corrected sodium may be normal. Potassium 4.8. Magnesium 1.6. Amylase and lipase were normal. Initial ketone was small. Repeat ketone was moderate. PLAN: I am going to repeat blood gas. Continue Lantus, IV fluid, close observation. I gave patient some Reglan for possible gastroparesis. Resume her home medicine. PROBLEMS: 1. Uncontrolled diabetes mellitus, mild diabetic ketoacidosis cannot be ruled out. 2. Hyperlipidemia. 3. Depression. 4. History suggestive of hyperthyroidism. 5. Peripheral neuropathy. cc: Saleem Rico MD MTDD
[2019-02-22] MEDS: NS + KCL 20 MEQ 1,000 ML IV SCH ×3 (03:00→19:30)
[2019-02-22] MEDS: PRILOSEC PO SCH (06:04)
[2019-02-22 06:36] LABS: BASO# 0.03 X1000 (0.0-0.2); BASO% 0.7 % (0.0-0.8); EOS# 0.04 X1000 (0.0-0.7); EOS% 0.9 % (0.0-10.0); HEMATOCRIT 37.1 % (37.0-47.0); HEMOGLOBIN 12.1 g/dL (12.0-16.0); LYMPH# 0.77 X1000 (1.2-3.4); MCH 30.3 PG (27-31); MCHC 32.6 g/dL (33-37); MONO# 0.33 X1000 (0.11-0.59); MONO% 7.3 % (1.7-9.3); MPV 10.2 FL (7.4-10.4); NEUT# 3.36 X1000 (1.4-6.5); NEUT% 74.1 % (42.2-75.2); PLT 212 X1000 (130-400); RBC 3.99 XMIL (4.2-5.4); RDW 13.4 % (11.5-14.5); WBC 4.53 X1000 (4.8-10.8)
[2019-02-22 07:24] LABS: AGAP 15; ALB/GLOB RATIO 1.4; ALBUMIN 3.4 g/dL (3.5-5.0); ALKALINE PHOSPHATASE 68 U/L (32-104); BUN 15 mg/dL (8-22); CALCIUM 7.6 mg/dL (8.8-10.2); CHLORIDE 102 mmol/L (98-107); COSMO 280; CREATININE 0.9 mg/dL (0.5-0.9); ESTIMATED GFR > 60; GLUCOSE 163 mg/dL (70-104); GOT 35 U/L (10-30); GPT 22 U/L (10-36); MAGNESIUM 1.6 mg/dL (1.5-2.7); SODIUM 138 mmol/L (136-145); TCO2 21 mmol/L (25-35); TOTAL BILIRUBIN 0.29 mg/dL (0.20-1.00); TOTAL PROTEIN 5.9 g/dL (6.3-8.3)
[2019-02-22 07:35] LABS: FREE T4 1.19 ng/dL (0.93-1.70); TSH 0.71 uIUmL (0.27-4.20)
[2019-02-22] MEDS ORDERED: CALCIUM GLUCONATE 1 GM in NS 50 ML IV ONE (08:19)
[2019-02-22] MEDS ORDERED: MAGNESIUM SULFATE 2 GM/S.W.I. 2 GM/50 ML IVPB IV ONE (08:19)
[2019-02-22] MEDS ORDERED: POTASSIUM PHOSPHATE 30 MEQ in NS 250 ML IV ONE (08:20)
[2019-02-22] MEDS: LYRICA PO SCH ×2 (09:28→21:11)
[2019-02-22] MEDS: LIPITOR PO SCH (09:28)
[2019-02-22] MEDS: COZAAR PO SCH (09:29)
[2019-02-22] MEDS: REGLAN PO SCH ×3 (09:29→16:37)
[2019-02-22] MEDS: LOPRESSOR PO SCH ×2 (09:29→21:10)
[2019-02-22] MEDS: EFFEXOR XR PO SCH (09:29)
--- NOTE | 2019-02-22 09:32 | Diag Imaging Result Doc PS360 ---
EXAM: CHEST-2 VIEWS 02/22/2019 HISTORY: hypoxia TECHNIQUE: PA and lateral chest COMMENT: There is apical pleural thickening bilaterally. The lungs are slightly hyperinflated. There is no evidence of acute cardiac or pulmonary disease. Compared to 02/18/2019 there has been no significant change in the appearance of the chest. IMPRESSION: COPD. Electronically signed by Jesus Sweet 02/22/2019 9:29 AM
[2019-02-22] MEDS: LANTUS INSULIN SUBQ SCH (10:59)
--- NOTE | 2019-02-22 13:25 | PROGRESS NOTE ---
DATE: 02/22/2019 SUBJECTIVE: A 68-year-old white female who was admitted yesterday for elevated blood sugar due to gastroparesis, nausea, not eating well, impending DKA. The patient has moderate acetone. The patient just came back from the x-ray. REVIEW OF SYSTEMS: Nausea, abdominal distention. The rest of the review of systems none reported. PAST MEDICAL HISTORY: Reviewed. PAST SURGICAL HISTORY: Reviewed. MEDICINES: Reviewed. ALLERGIES: Not known. PHYSICAL EXAMINATION: Vital signs: Temperature is 99.5 degrees, pulse is 108, blood pressure is 146/72, weight 134 pounds. HEENT: Poor dentition. Dry mucous membranes. Neck: Supple. Chest: Bilateral air entry. Heart: Distant heart sounds. Abdomen: Belly is soft. No signs of peritonitis. Extremities: No edema. Neurologic: No neurological deficits. INVESTIGATIONS: Reported CBC: White cell count 4.5, hematocrit 37, platelet 212,000. SMA-7 shows sodium 138, potassium 4.0, chloride 102, BUN 15, creatinine 0.9, glucose 163, calcium 7.6, phosphorus 2.7, magnesium 1.6. Liver function tests were normal. Thyroid function tests were normal. Urinalysis is clear. Chest x-ray is unremarkable, COPD. ASSESSMENT AND PLAN: 1. Impending diabetic ketoacidosis due to gastroparesis. Anion gap is improving. Continue Reglan 5 mg t.i.d., IV fluids. 2. GI prophylaxis with Prilosec. 3. Diabetes, on Lantus 20 units along with sliding scale. 4. Hypertension, on Cozaar. 5. Hyperlipidemia, on Lipitor. 6. Depression, on Effexor. 7. Chronic neuropathy pain, on Lyrica. 8. Slowly full liquid diet and will check the labs in the morning. LEVEL OF DOCUMENTATION: 35 minutes. cc: MD Saleem Hough MD
[2019-02-22] MEDS ORDERED: HUMULIN R IV ONE (17:05)
[2019-02-22] MEDS ORDERED: LANTUS INSULIN SUBQ ONE (21:00)
[2019-02-23] MEDS: PRILOSEC PO SCH (06:14)
[2019-02-23 07:39] LABS: BASO# 0.06 X1000 (0.0-0.2); BASO% 1.1 % (0.0-0.8); EOS# 0.14 X1000 (0.0-0.7); EOS% 2.6 % (0.0-10.0); HEMATOCRIT 36.4 % (37.0-47.0); HEMOGLOBIN 11.7 g/dL (12.0-16.0); LYMPH% 33.6 % (20.5-51.1); MCHC 32.1 g/dL (33-37); MCV 96.6 FL (81-99); MONO# 0.74 X1000 (0.11-0.59); MONO% 13.8 % (1.7-9.3); MPV 9.5 FL (7.4-10.4); NEUT# 2.61 X1000 (1.4-6.5); NEUT% 48.9 % (42.2-75.2); PLT 153 X1000 (130-400); RBC 3.77 XMIL (4.2-5.4); RDW 13.6 % (11.5-14.5); WBC 5.35 X1000 (4.8-10.8)
[2019-02-23 07:56] LABS: AGAP 11; BUN 9 mg/dL (8-22); CHLORIDE 101 mmol/L (98-107); COSMO 268; CREATININE 0.7 mg/dL (0.5-0.9); ESTIMATED GFR > 60; GLUCOSE 151 mg/dL (70-104); MAGNESIUM 2.1 mg/dL (1.5-2.7); PHOSPHORUS 2.3 mg/dL (2.7-4.5); POTASSIUM 3.8 mmol/L (3.5-5.1); SODIUM 133 mmol/L (136-145); TCO2 21 mmol/L (25-35)
[2019-02-23] MEDS ORDERED: POTASSIUM PHOSPHATE 30 MEQ in NS 250 ML IV ONE (08:31)
[2019-02-23] MEDS: COZAAR PO SCH (09:45)
[2019-02-23] MEDS: LANTUS INSULIN SUBQ SCH (09:46)
[2019-02-23] MEDS: LIPITOR PO SCH (09:46)
[2019-02-23] MEDS: LYRICA PO SCH ×2 (09:47→20:44)
[2019-02-23] MEDS: LOPRESSOR PO SCH ×2 (09:47→20:44)
[2019-02-23] MEDS: REGLAN PO SCH ×3 (09:47→17:38)
[2019-02-23] MEDS: EFFEXOR XR PO SCH (09:55)
--- NOTE | 2019-02-23 14:32 | PROGRESS NOTE ---
DATE: 02/23/2019 SUBJECTIVE: Blood sugars last night 580. She is not on sliding scale. She has some nausea and she is feeling a little better today. OBJECTIVE: Vital signs: Temperature is 97.8 degrees, pulse 79, blood pressure is stable. HEENT: Within normal limits. Poor dentition. Neck: Supple. Chest: Clear. Heart: Sounds are regular. Abdomen: Belly is soft. No signs of peritonitis. INVESTIGATIONS: CBC: White cell count 5.3, hematocrit 36.4, platelets 153,000. Sodium 133, potassium 3.8, chloride 101, anion gap was 11, sugar is 151. Phosphorus is low. ASSESSMENT AND PLAN: 1. Diabetic ketoacidosis, impending, very labile, rule out gastroparesis. I did change the Lantus 20 in the morning, 10 in the night and sliding scale with insulin coverage. Continue Reglan 5 mg t.i.d. along with Prilosec. 2. Chronic pain, neuropathy. Lyrica. 3. Will check the labs in the morning. She is on full liquid diet. Slowly titrate the diabetes and consider gastric emptying study if it was not done. Also need a FreeStyle Gabriela prescription for control of the sugars. LEVEL OF DOCUMENTATION: 25 minutes. cc: MD Saleem Hough MD
[2019-02-23] MEDS: HUMULIN R SUBQ SCH ×2 (17:38→20:45)
[2019-02-24 06:28] LABS: AGAP 11; BUN 9 mg/dL (8-22); CALCIUM 7.9 mg/dL (8.8-10.2); CHLORIDE 98 mmol/L (98-107); COSMO 274; CREATININE 0.6 mg/dL (0.5-0.9); ESTIMATED GFR > 60; GLUCOSE 252 mg/dL (70-104); POTASSIUM 4.6 mmol/L (3.5-5.1); SODIUM 133 mmol/L (136-145); TCO2 24 mmol/L (25-35)
--- NOTE | 2019-02-24 06:57 | PROGRESS NOTE ---
DATE: 02/24/2019 SUBJECTIVE: Ms. Cardona is doing fair. The patient does have very labile blood sugar. Last night, it went down to 30. I am going to decrease her Lantus to 15 units. The patient was on regular insulin for sliding scale. I am going to change it to Humalog. Her gastroparesis symptoms are doing better with Reglan. No chest pain or palpitations. The patient did have some nausea. No vomiting. No high-grade fever or chills. At times, mild cough. No dysuria or hematuria. OBJECTIVE: Vital Signs: Noted. Neck: Supple. No JVD. Lungs: Bilateral good air entry present. Cardiovascular: S1 and S2 heard. Abdomen: Soft, nontender. Bowel sounds present. Extremities: No cyanosis, clubbing. No acute DVT. REPAIRER HANDTOOLS: Alert, awake, able to move all 4 limbs. CONSIDERATION: Uncontrolled diabetes mellitus with hypoglycemia. I am going to check gastric emptying study. The Reglan seems to be helping. Will continue. If needed, I am going to get upper gastrointestinal endoscopy as an outpatient. Chest x-ray revealed chronic obstructive pulmonary disease. I am going to add Breo. Her other problems include peripheral neuropathy, gastritis, situational depression. Overall plan discussed with the patient. The patient understood and agreed. cc: Saleem Rico MD
[2019-02-24] MEDS ORDERED: LANTUS INSULIN SUBQ SCH (09:00)
[2019-02-24] MEDS: REGLAN PO SCH ×3 (09:48→17:41)
[2019-02-24] MEDS: LYRICA PO SCH ×2 (09:48→20:33)
[2019-02-24] MEDS: LOPRESSOR PO SCH ×2 (09:48→20:33)
[2019-02-24] MEDS: EFFEXOR XR PO SCH (09:48)
[2019-02-24] MEDS: COZAAR PO SCH (09:48)
[2019-02-24] MEDS: LIPITOR PO SCH (09:49)
--- NOTE | 2019-02-24 10:23 | Diag Imaging Result Doc PS360 ---
GASTRIC EMPTYING - 02/24/2019 INDICATION: nausea,iddm TECHNIQUE: 556 uCi of labeled solid food was ingested COMPARISON: None FINDINGS: The T1 half of gastric emptying is 96 minutes. This is very slightly delayed. No reflux visible. IMPRESSION: Borderline delayed gastric emptying rate suggesting mild gastroparesis. Electronically signed by Chago Sloan 02/24/2019 10:21 AM
[2019-02-24] MEDS: PRILOSEC PO SCH (10:30)
[2019-02-24] MEDS: HUMALOG SUBQ SCH ×4 (10:30→20:40)
[2019-02-24] MEDS: BREO ELLIPTA 200/25 MCG INH INH SCH (11:18)
[2019-02-24] MEDS ORDERED: LANTUS INSULIN SUBQ ONE (12:22)
[2019-02-24] MEDS: NS + KCL 20 MEQ 1,000 ML IV SCH (13:28)
[2019-02-25] MEDS: NS + KCL 20 MEQ 1,000 ML IV SCH (01:59)
[2019-02-25] MEDS: HUMALOG SUBQ SCH ×3 (06:00→16:56)
[2019-02-25] MEDS: PRILOSEC PO SCH (06:09)
[2019-02-25 07:01] LABS: AGAP 11; BUN 15 mg/dL (8-22); CHLORIDE 101 mmol/L (98-107); COSMO 278; CREATININE 0.7 mg/dL (0.5-0.9); ESTIMATED GFR > 60; GLUCOSE 157 mg/dL (70-104); POTASSIUM 4.6 mmol/L (3.5-5.1); SODIUM 137 mmol/L (136-145); TCO2 25 mmol/L (25-35)
[2019-02-25] MEDS: BREO ELLIPTA 200/25 MCG INH INH SCH (07:39)
--- NOTE | 2019-02-25 08:51 | PROGRESS NOTE ---
DATE: 02/25/2019 SUBJECTIVE: Ms. Cardona is doing fairly well. Patient since I started her on Reglan it does help her gastroparesis and nausea. She is tolerating food well. Blood sugar is doing better. Gastric emptying study noted and discussed with the patient. I had lengthy discussion with the patient side effect with Reglan. No chest pain, palpitations. No unusual cough or expectoration. OBJECTIVE: Her vital signs reviewed.Neck: Supple. No JVD. Lungs: Bilateral good air entry present. CVS: S1 and S2 heard. Abdomen: Soft, nontender. Bowel sounds present. DECOMMISSIONING WELL SITE MANAGER: Alert, awake, able to move all 4 limbs. LABORATORY DATA: Noted. Electrolytes done this morning, reviewed. PLAN AND CONSIDERATION: Uncontrolled diabetes mellitus complicated by peripheral neuropathy and gastroparesis, hyperlipidemia, gastroparesis. Overall patient is doing better. I am going to observe patient today. Ambulate the patient in the room and hallway. If clinical condition permits, we will plan discharging patient home this afternoon. cc: Saleem Rico MD
[2019-02-25] MEDS ORDERED: LANTUS INSULIN SUBQ SCH (09:00)
[2019-02-25] MEDS: LYRICA PO SCH (09:06)
[2019-02-25] MEDS: LIPITOR PO SCH (09:07)
[2019-02-25] MEDS: REGLAN PO SCH ×3 (09:07→16:56)
[2019-02-25] MEDS: EFFEXOR XR PO SCH (09:07)
[2019-02-25] MEDS: LOPRESSOR PO SCH (09:07)
[2019-02-25] MEDS: COZAAR PO SCH (09:07)
[2019-02-25 17:19] VITALS: BP 127/92
--- NOTE | 2019-02-27 19:40 | DISCHARGE SUMMARY ---
ADMISSION DATE: 02/21/2019 DISCHARGE DATE: 02/25/2019 FINAL DISCHARGE DIAGNOSES: 1. Uncontrolled diabetes mellitus. 2. Impending diabetic ketoacidosis. 3. Gastroparesis. 4. Hyperlipidemia. 5. Peripheral neuropathy. 6. Depression. Ms. Cardona is a 68-year-old white female patient, readmitted very next day when initially patient was admitted with diabetic ketoacidosis. After going home, patient had low blood sugar, and next day her blood sugar was more than 600. I think there was major contribution from gastroparesis. Patient did not take insulin next day morning when her blood sugar was very high. Patient was brought to emergency room. Acetone was present. Patient did have minimally elevated anion gap. Blood gas results reviewed. Patient was given fluid replacement, IV insulin. I evaluated patient. She had impending ketoacidosis. I decided to admit patient to the floor, treat her aggressively. Her clinical condition improved, anion gap improved, and patient was doing better. I was concerned about gastroparesis. Started patient on Reglan. We did a gastric emptying study. It was abnormal, but patient was on Reglan. After starting her on Reglan, patient was eating better. Blood sugar was improving. Nausea improved. Patient was feeling much better. I had a lengthy discussion with the patient about hypoglycemia and hyperglycemia. Discussed side effect of Reglan. Patient understood and agreed, and decided to discharge patient home. Her brother was present. Advised her to have followup with me in 7 days and take medicine regularly. She will take 24 units of Lantus, and then gradually go to her 28 units. Monitor Accu-Chek. Fall precaution. Resume rest of her medicine. In case of more distress, call us back or go to emergency room. Her lab data revealed last hemoglobin 11.7, hematocrit 36.4, WBC count 5.35, platelet count 153,000. Initial blood sugar was very high, but it came down. Initial anion gap was 26. Patient's urinalysis was benign. Blood gas revealed pH 7.37. Repeat blood gas pH was 7.44. Overall, patient received maximum benefit of hospitalization, and patient was discharged home on 02/25/2019. cc: Saleem Rico MD
== END 2019-02-25 17:54 | disposition home health service (06) | DRG 639 ==
LOC: ED 11:00 → 3N 17:02 → 1N 17:10
PROVIDERS: ADMIT Internal Medicine; ATTEND Internal Medicine